=== PATIENT | female | born 1965 | race Caucasian/White ===

== ENCOUNTER 2018-09-13 19:38 | Observation (INO) | payer BC ==
[2018-09-13] MEDS ORDERED: DIPHENHYDRAMINE 50 MG/ML VIAL ONE (20:28)
[2018-09-13] MEDS ORDERED: METOCLOPRAMIDE 10 MG/2mL INJ ONE (20:28)
[2018-09-13] MEDS ORDERED: NA CHLORIDE 0.9% 1,000 ML ONE (20:28)
[2018-09-13] MEDS ORDERED: MORPHINE 2 MG/ML SYR ONE (20:28)
[2018-09-13 20:37] LABS: Absolute Lymphocytes (CBC) 1.4 K/uL (0.7-4.9); Basophils % 1.1 % (0-1.3); Hematocrit 42.1 % (36.0-45.0); Lymphocytes % 29.8 % (15.3-44.8); MPV 8.6 fL (7.6-11.3); RBC Red Blood Cell Count 4.41 M/uL (3.86-4.86)
--- OUTSIDE RECORDS SUMMARY | 2018-09-13 20:40 | XMS REPORT | Continuity of Care Document ---
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 Originally documented as HYDROCODONE. mupirocin Assertion Drug Active Data migrated MH [facility] topical<bobo allergy 4 from [employer] p>2</sup> Centricity on 07/22/14. Originally documented as BACTROBAN. local crusting & erythema & inflammation Immunizations Immunization Date Given Site Status Last Updated Comments Source Results Order Results Value Reference Date Interpretation Comments Source Name Range Soft Soft REASON FOR EXAM: I88.9. Cervical lymphadenitis. 08/01 - OPID Tissue Tissue /2016 - [facility] Head/Ne Head/Nec ck US k US COMPARISON: None. Read by: Juanito Evans MD Dictated Date/time: 08/01/16 16:12 Electronically Signed by: Juanito Evans MD 08/01/16 16:18 FINAL REPORT FINDINGS: Nonvascular ultrasound of the right neck was performed using a linear transducer. Static images are submitted. 2 lymph nodes are noted in the right neck with a thickened cortex corresponding t o palpable abnormalities identified by the patient measuring 1.8 x 0.72 x 1.3 cm and 1.8 x 0.75 x 0.97 cm. An additional lymph node is noted in the inferior, lateral right neck without a fatty hilum adrianna suring 1.6 x 0.62 x 1.1 cm. Lymphadenopathy may be due to an inflammatory, infectious or neoplastic etiology. There is no additional sonographic abnormality on the submitted images. IMPRESSION: Right neck lymphadenopathy. SL: 15 Vital Signs Vital Sign Value Date Comments Source Encounters Location Location Encounter Encounter Reason Attending ADM DC Status Source Details Type Number For Provider Date Date Visit Outpatient [id number] [place] 06/13 [facility] [place] Outpatient [id number] NJUV 07/09 [facility] Outpatient [id number] [facility] 07/18 [facility] Outpt Diag [id number] [facility] 08/01 08/02 [facility] Outpatient [id number] CAR[place] 08/13 [facility] [place] Outpatient [id number] [facility] 11/13 [facility] Procedures Procedure Code Date Perfomer Comments Source Endometrial ablation [id number] 03/24/2013 OPID [place] Cyst of [id number] 03/24/2005 left breast MH OPID breast<sup>1</sup> [place] Cholecystectomy [id number] 03/24/2000 MH OPID [place] Insertion of hearing [id number] MH OP[facility] implant into middle Casey ear Removal of vestibular [id number] left MH OPID schwannoma<sup>2</sup Casey >
--- OUTSIDE RECORDS SUMMARY | 2018-09-13 20:40 | XMS REPORT | Summary of Care ---
:1965 Author Organization [facility] Outpatient [facility] [place] Address [address] [place], [place] [address]- Encounter HQ Encntr_alias(FIN) [id number] Date(s): 08/01/16 - 08/01/16 [facility] [address], [address] [place] [id number] Discharge Disposition: Home or Self Care Attending Physician: Anel Rudolph MSN, RN, DIRECTOR CAMP-C Vital Signs No data available for this section Problem List Condition Effective Dates Status Health Status Informant Adenomyosis(Confirmed) Resolved Asthma(Confirmed) Resolved Personal history of Vestibular Active Schwannoma(Confirmed) Allergies, Adverse Reactions, Alerts Substance Reaction Severity Status HYDROcodone1 Active mupirocin topical2 Active 1Data migrated from [employer] on 07/22/14. Originally documented as HYDROCODONE.2Data migrated from [employer] on 07/22/14. Originally documented as BACTROBAN. local crusting &erythema & inflammation Medications No data available for this section Results No data available for this section Immunizations No data available for this section Procedures Procedure Date Related Diagnosis Body Site Endometrial ablation 03/24/13 Cyst of breast1 03/24/05 Cholecystectomy 03/24/00 Insertion of hearing implant into middle ear Removal of vestibular schwannoma2 1left [id number] Social History Social History Type Response Smoking Status Never smoker; Exposure to Tobacco Smoke None; Cigarette Smoking Last 365 Days No; Reg Smoking Cessation Counseling No Assessment and Plan No data available for this section
--- OUTSIDE RECORDS SUMMARY | 2018-09-13 20:40 | XMS REPORT ---
:1965 Author [facility] Address [address] [place] [address] Dr. Good[address] [place] [address] Care Team Providers Name Role Phone DR MIKY WHITE Unavailable Unavailable Problems This patient has no known problems. Allergies, Adverse Reactions, Alerts This patient has no known allergies or adverse reactions. Medications This patient has no known medications. Encounters Start End Encounter Admission Attending Care Care Encounter Date/Time Date/Time Type Type Clinicians Facility Department ID 2015-08-23 2016-09-27 Outpatient PASCUAL [facility] BALANCE PT [id number] 07:23:00 23:59:00 MIKY
--- OUTSIDE RECORDS SUMMARY | 2018-09-13 20:40 | XMS REPORT | Clinical Summary ---
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 prostate Relation Name Status Comments Father Mother Alive Social History Tobacco Use Types Packs/Day Years Used Date Never Smoker Smokeless Tobacco: Never Used Alcohol Use Drinks/Week oz/Week Comments Yes 1 Standard drinks or equivalent 0.6 3-4/ week Sex Assigned at Date Recorded Not on file Job Start Date Occupation Industry Not on file Not on file Not on file Travel History Travel Start Travel End No recent travel history available. Last Filed Vital Signs Not on file Plan of Treatment Health Maintenance Due Date Last Done Comments BREAST CANCER SCREENING 2016 COLONOSCOPY SCREENING 2016 SHINGLES VACCINES (#1) 2016 INFLUENZA VACCINE 10/22/2018 Implants Implanted Type Area Bus Girl Device Shelf Model / Identifier Expiration Serial / Date Lot Implant Coclr W/ 12mm Abtmnt [id number] 4mm Baha - [id number] Otolaryngology Left: COCHLEAR RIGOBERTO 02/20/2018 [id number] / Implanted: Qty: 1 on 09/04/2015 by Elfego Hargrove MD Implants or Sets Ear / [id number] Results Not on fileafter 09/12/2017 Guarantor Name Account Type Relation to Date of Phone Billing Address Patient Rubina Bhatia Personal/Family Self 1965 [phone] [facility] (Home) [facility] [phone] [place] [address] (Work) Advance Directives Patient has advance care planning documents on file. For more information, please contact:Danilo Soto[address] [place] [address]
[2018-09-13 20:49] LABS: Protime INR 1.02
[2018-09-13 20:56] LABS: ALT/SGPT 59 U/L (12-78); AST/SGOT 30 U/L (15-37); Albumin 4.1 g/dL (3.4-5.0); Alkaline Phosphatase 95 U/L (45-117); BUN Blood Urea Nitrogen 12 mg/dL (7-18); Bicarbonate 26 mmol/L (21-32); Bilirubin Direct < 0.1 mg/dL (0-0.2); Bilirubin Total 0.5 mg/dL (0.2-1.0); Glucose Level 104 mg/dL (74-106); Magnesium 2.2 mg/dL (1.8-2.4); NT PRO-BNP 50 pg/mL (<125); Potassium 3.7 mmol/L (3.5-5.1); Protein, Total 7.1 g/dL (6.4-8.2); Sodium Level 144 mmol/L (136-145); Troponin (Emerg Dept Use Only) < 0.02 ng/mL (0.0-0.045)
--- NOTE | 2018-09-13 21:05 | RAD REPORT ---
EXAM DESCRIPTION: RAD - Chest Single View - 09/13/2018 8:39 pm CLINICAL HISTORY: Chest pain COMPARISON: January 2009 TECHNIQUE: AP portable chest image was obtained 2036 hours . FINDINGS: Low lung volumes noted. No failure, infiltrate or mass. Trachea is midline. Heart and vasc ulature are normal. No measurable pleural effusion and no pneumothorax. No acute bony abnormality see n. No acute aortic findings suspected. IMPRESSION: No acute cardiopulmonary process. No significant change from comparison.
[2018-09-13] MEDS ORDERED: ALPRAZOLAM 0.25 MG TABLET PO PRN (21:56)
[2018-09-13] MEDS ORDERED: ACETAMINOPHEN 500 MG TAB PO PRN (21:56)
[2018-09-13 23:14] VITALS: BMI 29.2
--- NOTE | 2018-09-14 00:44 | ER ---
Nurse's Notes [facility] Name: Rubina Bhatia Age: 52 yrs Sex: Female : 1965 Arrival Date: 09/13/2018 Time: 19:39 Bed 14 Private MD: Diagnosis: Headache;Dizziness and giddiness;Chest pain, unspecified Presentation: 09/13 19:44 Presenting complaint: Patient states: Headache with n/v that started today. Care prior aj to arrival: None. 19:44 Acuity: LI 3 aj 20:06 Transition of care: patient was not received from another setting of care. Onset of ak1 symptoms is unknown. Risk Assessment: Do you want to hurt yourself or someone else? Patient reports no desire to harm self or others. Initial Sepsis Screen: Does the patient meet any 2 criteria? No. Patient's initial sepsis screen is negative. Does the patient have a suspected source of infection? No. Patient's initial sepsis screen is negative. 20:06 Method Of Arrival: Ambulatory ak1 Triage Assessment: 19:45 Headache History: Denies prior headaches. General: Appears in no apparent distress. aj uncomfortable, Behavior is calm, cooperative, appropriate for age. Pain: Complains of pain in face and scalp. Neuro: Level of Consciousness is awake, alert, obeys commands, Oriented to person, place, time, situation, Appropriate for age Reports headache. Respiratory: Airway is patent Respiratory effort is even, unlabored, Respiratory pattern is regular, symmetrical. GI: Reports nausea, vomiting. Derm: Skin is intact, is healthy with good turgor, Skin is pink, warm \T\ dry. normal. 20:08 Pain: Pain Pain began 2-3 days ago. Also complains of nausea. 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 - Social history:: Smoking status: unknown. - Ebola Screening: : No symptoms or risks identified at this time. Screenin:55 Abuse screen: Denies threats or abuse. Denies injuries from another. Nutritional ak1 screening: No deficits noted. Tuberculosis screening: No symptoms or risk factors identified. Fall Risk None identified. Assessment: 20:04 General: Appears uncomfortable, Behavior is cooperative, quiet. Pain: Complains of pain ak1 in headache. 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 Gait is steady, Speech is normal, Facial symmetry appears normal. Cardiovascular: Reports chest pain, nausea, vomiting, Heart tones S1 S2. Respiratory: No deficits noted. GI: Abdomen is round non-distended, Bowel sounds present X 4 quads. Abd is soft and non tender X 4 quads. Reports nausea, vomiting. : No signs and/or symptoms were reported regarding the genitourinary system. EENT: No signs and/or symptoms were reported regarding the EENT system. Derm: No signs and/or symptoms reported regarding the dermatologic system. Musculoskeletal: No signs and/or symptoms reported regarding the musculoskeletal system. 20:58 Reassessment: Patient appears in no apparent distress at this time. Patient and/or ak1 family updated on plan of care and expected duration. Pain level reassessed. Patient is alert, oriented x 3, equal unlabored respirations, skin warm/dry/pink. Patient denies pain at this time. Patient states feeling better. Patient states symptoms have improved. 22:09 Reassessment: Patient appears in no apparent distress at this time. pt resting on left ak1 side with eyes closed, resp even and unlabored. pt informed of admission status, process and wait for room. pt denies pain at this time, stating her headache has resolved. Patient states symptoms have improved. Vital Signs: 19:45 BP 117 / 58; Pulse 70; Resp 16; Temp 98.6; Pulse Ox 98% on R/A; Weight 72.57 kg; Height aj 5 ft. 3 in. (160.02 cm); 20:58 BP 129 / 66; Pulse 70; Resp 14; Pulse Ox 100% on R/A; Pain 0/10; ak1 22:02 BP 96 / 48; Pulse 55; Resp 14; Temp 98.5; Pulse Ox 100% on R/A; Pain 0/10; ak1 19:45 Body Mass Index 28.34 (72.57 kg, 160.02 cm) ED Course: 19:39 Patient arrived in ED. am2 19:45 Triage completed. aj 19:45 Arm band placed on right wrist. Patient placed in an exam room. aj 19:53 Hemant Odonnell PA is PHCP. [facility] 19:53 Sarthak Stiles MD is Attending Physician. jmm 19:54 Anju Kay, RN is Primary Nurse. ak1 20:05 Inserted saline lock: 20 gauge in right antecubital area, using aseptic technique. ak1 Blood collected. 20:07 Patient has correct armband on for positive identification. Placed in gown. Bed in low ak1 position. Call light in reach. Side rails up X 1. cafeteria monitor on. Pulse ox on. NIBP on. 20:38 XRAY Chest (1 view) In Process Unspecified. EDMS 20:44 CT Head Brain wo Cont In Process Unspecified. EDMS 20:44 CT completed. Patient tolerated procedure well. Patient moved back from CT. bq 21:32 No provider procedures requiring assistance completed. ak1 21:35 Leland Mistry MD is Hospitalizing Provider. jmm 22:10 Patient admitted, IV remains in place. ak1 Administered Medications: 20:36 Drug: diphenhydrAMINE 12.5 mg Route: IVP; Site: right antecubital; ak1 20:56 Follow up: Response: No adverse reaction; Pain is decreased ak1 20:36 Drug: morphine 2 mg Route: IVP; Site: right antecubital; ak1 20:57 Follow up: Response: No adverse reaction; Pain is decreased ak1 20:37 Drug: Reglan 10 mg Route: IVP; Site: right antecubital; ak1 20:57 Follow up: Response: No adverse reaction; Pain is decreased ak1 20:56 Drug: NS 0.9% 1000 ml Route: IV; Rate: 1 bolus; Site: right antecubital; ak1 21:50 Follow up: IV Status: Completed infusion; IV Intake: 1000ml ak1 Intake: 21:50 IV: 1000ml; Total: 1000ml. ak1 Outcome: 21:35 Decision to Hospitalize by Provider. jmm 22:10 Condition: stable ak1 22:10 Instructed on the need for admit. 23:10 Admitted to Med/surg accompanied by tech, via wheelchair, room 221, with chart, Report ak1 called to Rae KNIGHT for 221 23:10 Patient left the ED. ak1 Signatures: Dispatcher [employer] EDSamantha Padilla RN RN aj Mickail, Joel, PA PA jmm Quilty, Betty bq Krenek, Amber, RN RN ak1 Samantha Prather am2
--- NOTE | 2018-09-14 00:44 | EDPHYS ---
Physician Documentation [facility] Name: Rubina Bhatia Age: 52 yrs Sex: Female : 1965 Arrival Date: 09/13/2018 Time: 19:39 Bed 14 Private MD: ED Physician Sarthak Stiles HPI: 09/13 20:00 This 52 yrs old Female presents to ER via Ambulatory with complaints of jmm Headache, Nausea/Vomiting, Chest Pain. 20:00 Onset: The symptoms/episode began/occurred gradually, at 17:00. Associated signs and jmm symptoms: Pertinent positives: vomiting. This is a 52 year old female that presents to the ED with complaints of vomiting since this past . Patient states taking a nap this afternoon and awakening with a headache along with chest pain. Patient states the pain intensified upon subsequent episodes of vomiting. Patient denies abdominal pain. Patient also complains of dizziness which the patient states is chronic. . 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 - Social history:: Smoking status: unknown. - Ebola Screening: : No symptoms or risks identified at this time. ROS: 20:06 Constitutional: Negative for fever, chills, and weight loss, Neck: Negative for injury, jmm pain, and swelling. 20:06 Cardiovascular: Positive for chest pain. 20:06 Abdomen/GI: Positive for vomiting. 20:06 Neuro: Positive for dizziness, headache. 20:06 All other systems are negative. Exam: 20:06 Constitutional: This is a well developed, well nourished patient who is awake, alert, jmm and in no acute distress. Head/Face: atraumatic. Eyes: EOMI, no conjunctival erythema appreciated ENT: Moist Mucus Membranes Neck: Trachea midline, Supple Chest/axilla: Normal chest wall appearance and motion. 20:06 Cardiovascular: Rate: normal, Rhythm: regular. 20:06 Respiratory: the patient does not display signs of respiratory distress, Respirations: normal, Breath sounds: are clear throughout. 20:06 Abdomen/GI: Inspection: abdomen appears normal, Bowel sounds: normal, Palpation: abdomen is soft and non-tender, in all quadrants. 20:06 Musculoskeletal/extremity: ROM: intact in all extremities. 20:06 Skin: Appearance: Color: normal in color. 20:06 Neuro: Orientation: is normal, Mentation: is normal, Memory: is normal. 20:06 Psych: Behavior/mood is pleasant, cooperative. 20:45 ECG was reviewed by the Attending Physician. [facility] Vital Signs: 19:45 BP 117 / 58; Pulse 70; Resp 16; Temp 98.6; Pulse Ox 98% on R/A; Weight 72.57 kg; Height aj 5 ft. 3 in. (160.02 cm); 20:58 BP 129 / 66; Pulse 70; Resp 14; Pulse Ox 100% on R/A; Pain 0/10; ak1 22:02 BP 96 / 48; Pulse 55; Resp 14; Temp 98.5; Pulse Ox 100% on R/A; Pain 0/10; ak1 19:45 Body Mass Index 28.34 (72.57 kg, 160.02 cm) MDM: 19:59 Patient medically screened. [facility] 21:33 Data reviewed: vital signs, nurses notes. Counseling: I had a detailed discussion with [facility] the patient and/or guardian regarding: the historical points, exam findings, and any diagnostic results supporting the discharge/admit diagnosis, lab results, radiology results, the need for further work-up and treatment in the hospital. 21:33 ED course: Due to change in character of dizziness along with chest pain, patient will [facility] be admitted for observation along with mri imaging. This was discussed with Dr. Stiles whom recommended this as a plan of care. Patient pain is currently resolved in the ED on admission. I discussed the patient with Dr. Mistry whom accepted admission. . 09/13 20:00 Order name: Basic Metabolic Panel [facility] 09/13 20:00 Order name: CBC with Diff [facility] 09/13 20:00 Order name: LFT's [facility] 09/13 20:00 Order name: Magnesium [facility] 09/13 20:00 Order name: NT PRO-BNP; Complete Time: 20:58 [facility] 09/13 20:00 Order name: PT-INR; Complete Time: 20:58 [facility] 09/13 20:00 Order name: Troponin (emerg Dept Use Only); Complete Time: 20:58 [facility] 09/13 20:01 Order name: Basic Metabolic Panel; Complete Time: 20:58 [facility] 09/13 20:01 Order name: CBC with Automated Diff; Complete Time: 20:58 [facility] 09/13 20:01 Order name: Liver (Hepatic) Function; Complete Time: 20:58 [facility] 09/13 20:01 Order name: Magnesium; Complete Time: 20:58 [facility] 09/13 22:05 Order name: Basic Metabolic Panel [facility] 09/13 22:06 Order name: Troponin I [facility] 09/13 22:08 Order name: CKMB Creatine Kinase MB [facility] 09/13 20:00 Order name: XRAY Chest (1 view); Complete Time: 21:16 [facility] 09/13 20:00 Order name: EKG; Complete Time: 20:02 [facility] 09/13 20:00 Order name: CT Head Brain wo Cont [facility] 09/13 21:25 Order name: CT Head Angio [facility] 09/13 21:25 Order name: CT Neck Angio [facility] 09/13 22:06 Order name: Echo with Doppler [facility] 09/13 22:06 Order name: EKG Electrocardiogram [facility] 09/13 22:08 Order name: Brain With Cont [facility] 09/13 22:08 Order name: Creatine Phosphokinase [facility] 09/13 22:08 Order name: Troponin I [facility] 09/13 22:08 Order name: Troponin I [facility] 09/13 22:08 Order name: Troponin I [facility] 09/13 20:00 Order name: Cardiac monitoring; Complete Time: 20:09 [facility] 09/13 20:00 Order name: EKG - Nurse/Tech; Complete Time: 20:59 [facility] 09/13 20:00 Order name: IV Saline Lock; Complete Time: 20:38 [facility] 09/13 20:00 Order name: Labs collected and sent; Complete Time: 20:38 [facility] 09/13 20:00 Order name: O2 Per Protocol; Complete Time: 20:09 [facility] 09/13 20:00 Order name: O2 Sat Monitoring; Complete Time: 20:09 [facility] 09/13 22:06 Order name: EKG Electrocardiogram [facility] EC:45 Rate is 63 beats/min. Rhythm is regular. QRS Clio is Normal. MD interval is normal. QRS jmm interval is normal. QT interval is normal. No Q waves. T waves are Flattened in leads III, aVL, aVR, V1. No ST changes noted. Administered Medications: 20:36 Drug: diphenhydrAMINE 12.5 mg Route: IVP; Site: right antecubital; ak1 20:56 Follow up: Response: No adverse reaction; Pain is decreased ak1 20:36 Drug: morphine 2 mg Route: IVP; Site: right antecubital; ak1 20:57 Follow up: Response: No adverse reaction; Pain is decreased ak1 20:37 Drug: Reglan 10 mg Route: IVP; Site: right antecubital; ak1 20:57 Follow up: Response: No adverse reaction; Pain is decreased ak1 20:56 Drug: NS 0.9% 1000 ml Route: IV; Rate: 1 bolus; Site: right antecubital; ak1 21:50 Follow up: IV Status: Completed infusion; IV Intake: 1000ml ak1 Disposition: 09/14 09:31 Co-signature as Attending Physician, Sarthak Stiles MD I agree with the assessment and wa plan of care. Disposition: 09/13/18 21:35 Hospitalization ordered by Leland Mistry for Observation. Preliminary diagnosis are Headache, Dizziness and giddiness, Chest pain, unspecified. - Bed requested for Telemetry/MedSurg (observation). - Status is Observation. ak1 - Condition is Stable. - Problem is new. - Symptoms have improved. UTI on Admission? No Signatures: Dispatcher [employer] EDMS Leelee Hale RN RN mw Myers, Amanda, RN RN aj Mickail, Joel, PA PA jmm Krenek, Amber, RN RN ak1 Appiah, William, MD MD vt Corrections: (The following items were deleted from the chart) 09/13 22:26 21:35 Hospitalization Ordered by Leland Mistry MD for Observation. Preliminary diagnosis is Headache; Dizziness and giddiness; Chest pain, unspecified. Bed requested for Telemetry/MedSurg (observation). Status is Observation. Condition is Stable. Problem is new. Symptoms have improved. UTI on Admission? No. [place] 23:10 22:26 09/13/2018 21:35 Hospitalization Ordered by Leland Mistry MD for Observation. ak1 Preliminary diagnosis is Headache; Dizziness and giddiness; Chest pain, unspecified. Bed requested for Telemetry/MedSurg (observation). Status is Observation. Condition is Stable. Problem is new. Symptoms have improved. UTI on Admission? No. mw
[2018-09-14 06:00] LABS: Absolute Lymphocytes (CBC) 1.8 K/uL (0.7-4.9); Basophils % 1.1 % (0-1.3); Hematocrit 39.5 % (36.0-45.0); Lymphocytes % 43.6 % (15.3-44.8); RBC Red Blood Cell Count 4.18 M/uL (3.86-4.86)
[2018-09-14 06:16] LABS: BUN Blood Urea Nitrogen 13 mg/dL (7-18); Bicarbonate 27 mmol/L (21-32); Glucose Level 94 mg/dL (74-106); Potassium 3.8 mmol/L (3.5-5.1); Sodium Level 144 mmol/L (136-145)
[2018-09-14 06:17] LABS: HDL Cholesterol 50 mg/dL (40-60); LDL Cholesterol, Calculated 84 (<130); Troponin I < 0.02 ng/mL (0.0-0.045)
--- NOTE | 2018-09-14 06:54 | P.HP ---
Certification for Inpatient Patient admitted to: Observation With expected LOS: <2 Midnights Patient will require the following post-hospital care: None Practitioner: I am a practitioner with admitting privileges, knowledge of patient current condition, hospital course, and medical plan of care. Services: Services provided to patient in accordance with Admission requirements found in Title 42 Section 412.3 of the Code of Federal Regulations Patient History Date of Service: 09/13/18 Reason for admission: CHEST PAIN/INTRACTABLE NAUSEA AND VOMITING/HEADACHE/ VERTIGO History of Present Illness: PATIENT IS A 52-YEAR-OLD FEMALE CAME INTO THE HOSPITAL WITH COMPLAINTS OF PERSISTENT NAUSEA AND VOMITING. THIS BEEN GOING ON FOR THE LAST 24-48 HR. SHE WAS TAKEN A NAP AND WHEN SHE WOKE UP SHE HAD CHEST PAIN AND HEADACHE. SHE CAME INTO THE EMERGENCY ROOM FOR FURTHER EVALUATION. IN THE EMERGENCY ROOM HER WORKUP HAS BEEN UNREMARKABLE. HER CT OF THE HEAD WAS NEGATIVE. EKG AND TROPONINS HAVE BEEN NEGATIVE WELL. PATIENT WAS HAVING SOME WORSENING VERTIGO SYMPTOMS WELL THE HEADACHE WITH THE NAUSEA AND VOMITING. CONCERN FOR POSTERIOR CEREBRAL ARTERY CIRCULATION ISSUE. PATIENT GET AN MRI IN THE MORNING FOR FURTHER EVALUATION WELL A CARDIAC WORKUP. Allergies adhesive tape Allergy (Verified 09/13/18 23:51) blisters Home Medications: NK [No Home Meds] 09/13/18 - Past Medical/Surgical History Has patient received pneumonia vaccine in the past: No Diabetic: No -: brain tumor -: tumor removal in brain 2013 -: bone anchor for hearing aid - Family History Father History Unknown: Yes Medical History: Hypertension, Stroke, Cancer Mother History Unknown: Yes Medical History: Other (see notes) Notes: thyroid problem - Social History Smoking Status: Never smoker Alcohol use: Yes Place of Residence: Home Review of Systems 10-point ROS is otherwise unremarkable Physical Examination - Vital Signs Temperature: 97.5 F Blood Pressure: 108/56 Pulse: 54 Respirations: 16 Pulse Ox (%): 96 - Physical Exam General: Alert, In no apparent distress, Oriented x3 HEENT: Atraumatic, PERRLA, Mucous membr. moist/pink, EOMI, Sclerae nonicteric Neck: Supple, 2+ carotid pulse no bruit, No LAD, Without JVD or thyroid abnormality Respiratory: Clear to auscultation bilaterally, Normal air movement Cardiovascular: Regular rate/rhythm, Normal S1 S2, No murmurs Gastrointestinal: Normal bowel sounds, Soft and benign, Non-distended, No tenderness Musculoskeletal: No clubbing, No swelling, No tenderness Integumentary: No rashes Neurological: Normal speech, Normal strength at 5/5 x4 extr, Normal tone, Sensation intact, Cranial nerves 3-12 intact, Normal affect Lymphatics: No axilla or inguinal lymphadenopathy - Studies Laboratory Data (last 24 hrs) 09/13/18 20:23: PT 12.0, INR 1.02 09/13/18 20:23: WBC 4.6, Hgb 14.4, Hct 42.1, Plt Count 219 09/13/18 20:23: Sodium 144, Potassium 3.7, BUN 12, Creatinine 0.80, Glucose 104 , Magnesium 2.2, Total Bilirubin 0.5, AST 30, ALT 59, Alkaline Phosphatase 95 Assessment & Plan - Problems (Diagnosis) (1) Vertigo Current Visit: Yes Status: Acute (2) Headache Current Visit: Yes Status: Acute (3) Chest pain, rule out acute myocardial infarction Current Visit: Yes Status: Acute (4) Intractable nausea and vomiting Current Visit: Yes Status: Acute - Plan PLAN: 1. Serial troponins and EKG 2. Cardiology consultation if workup is positive for any concerning findings 3. Echocardiogram 4. Anti-platelet therapy, anti coagulation, beta-romy, statin, and O2 as needed 5. IV morphine for pain 6. Anti emetics 7. MRI of the for further evaluation of her vertigo and nausea symptoms along with the headache 8. GI and DVT prophylaxis Discharge Plan: Home Plan to discharge in: 24 Hours - Advance Directives Does patient have a Living Will: Yes Does patient have a Durable POA for Healthcare: Yes - Code Status/Comfort Care Code Status Assessed: Yes Code Status: Full Code Critical Care: No Time Spent Managing PTS Care (In Minutes): 40
[2018-09-14 07:40] LABS: Anisocytosis 1+; Blood Morphology Comment NOTED (NOT SEEN); Platelet Estimate ADEQ
--- NOTE | 2018-09-14 07:52 | EKG ---
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
[2018-09-14] MEDS: MECLIZINE HCL 12.5 MG TAB PO SCH ×2 (08:26→14:00)
[2018-09-14] MEDS ORDERED: IBUPROFEN 400 MG TAB PO PRN (08:34)
[2018-09-14] MEDS ORDERED: ASPIRIN EC 81 MG TAB PO SCH (09:00)
[2018-09-14] MEDS ORDERED: METOPROLOL TAR 25 MG TAB PO SCH (09:00)
[2018-09-14] MEDS ORDERED: METOPROLOL TAR 50 MG TAB PO SCH ×2 (09:00)
[2018-09-14] MEDS ORDERED: ENOXAPARIN 40 MG/0.4 ML SQ SCH (09:00)
--- NOTE | 2018-09-14 09:41 | P.DS ---
Admission Date: 09/13/18 Discharge Date: 09/14/18 Primary Care Provider: PCP-Denominational; ENT-Dr. Carrion(Denominational) Disposition: ROUTINE DISCHARGE Discharge Condition: GOOD Reason for Admission: CHEST PAIN/INTRACTABLE NAUSEA AND VOMITING/HEADACHE/ VERTIGO Consultations: None Procedures: CT head with and without contrast: Unremarkable. 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 She also reports chest pain and headaches. Patient was evaluated emergency room. Patient with history of acoustic neuroma with implant. Patient with history of chronic vertigo and headaches. CT head unremarkable. EKG and cardiac enzymes unremarkable. Patient admitted for further evaluation. Hospital Course: Patient presented with nausea, vomiting, vertigo and chest pain. CT head unremarkable. CT angiogram performed. MRI brain performed. At discharge she is without any nausea, vomiting, headaches, and chest pain. Cardiac enzymes unremarkable. Echocardiogram performed. Wound care consult was done to evaluate chronic wound to the left ear. This is related to her implant. No infection is noted at this time. This has been monitored closely by ENT. Her last visit with ENT was 8 months ago. Continue with wound care recommendations. Recommend to follow up with ENT to follow up this hospitalization and continue her care. Patient will continue with Motrin, Tylenol or tramadol as needed for pain. Patient has medication at home. Patient has seen Neurology in the past concerning chronic headaches. Will recommend to follow up with neurology or locally further address her chronic headaches. If chest pain persists recommend for outpatient cardiac evaluation. Vital Signs/Physical Exam: Temp Pulse Resp BP Pulse Ox 97.5 F 66 16 116/58 L 96 09/14/18 06:55 09/14/18 08:26 09/14/18 06:55 09/14/18 08:26 09/14/18 06:55 General: Alert, In no apparent distress, Oriented x3, Cooperative HEENT: Atraumatic Neck: Supple Respiratory: Clear to auscultation bilaterally, Normal air movement Cardiovascular: Normal pulses, Regular rate/rhythm Gastrointestinal: Normal bowel sounds, Soft and benign, Non-distended, No tenderness, No masses, No rebound, No guarding Musculoskeletal: No erythema, No tenderness, No warmth Integumentary: Other (Implant in place to the left ear. Mild irritation to implant) Neurological: Normal speech, Normal strength at 5/5 x4 extr, Normal tone, Normal affect Laboratory Data at Discharge: WBC 4.1 K/uL (4.3-10.9) L 09/14/18 05:33 Hgb 13.9 g/dL (12.0-15.0) 09/14/18 05:33 Hct 39.5 % (36.0-45.0) 09/14/18 05:33 Plt Count 207 K/uL (152-406) 09/14/18 05:33 PT 12.0 SECONDS (9.5-12.5) 09/13/18 20:23 INR 1.02 09/13/18 20:23 Sodium 144 mmol/L (136-145) 09/14/18 05:33 Potassium 3.8 mmol/L (3.5-5.1) 09/14/18 05:33 BUN 13 mg/dL (7-18) 09/14/18 05:33 Creatinine 0.72 mg/dL (0.55-1.3) 09/14/18 05:33 Glucose 94 mg/dL (74-106) 09/14/18 05:33 Magnesium 2.2 mg/dL (1.8-2.4) 09/13/18 20:23 Total Bilirubin 0.5 mg/dL (0.2-1.0) 09/13/18 20:23 AST 30 U/L (15-37) 09/13/18 20:23 ALT 59 U/L (12-78) 09/13/18 20:23 Alkaline Phosphatase 95 U/L (45-117) 09/13/18 20:23 Troponin I < 0.02 ng/mL (0.0-0.045) 09/14/18 05:33 Triglycerides Cancelled 09/14/18 06:00 Cholesterol Cancelled 09/14/18 06:00 HDL Cholesterol Cancelled 09/14/18 06:00 Cholesterol/HDL Ratio Cancelled 09/14/18 06:00 Home Medications: NK [No Home Meds] 09/13/18 Patient Discharge Instructions: 1. Recommend to follow up with her PCP in 1 week to follow up this hospitalization. 2. Patient presented with nausea, vomiting, vertigo and chest pain. CT head unremarkable. CT angiogram performed. MRI brain performed. At discharge she is without any nausea, vomiting, headaches, and chest pain. Cardiac enzymes unremarkable. Echocardiogram performed. Wound care consult was done to evaluate chronic wound to the left ear. This is related to her implant. No infection is noted at this time. This has been monitored closely by ENT. Her last visit with ENT was 8 months ago. Continue with wound care recommendations. Recommend to follow up with ENT to follow up this hospitalization and continue her care. Patient will continue with Motrin, Tylenol or tramadol as needed for pain. Patient has medication at home. Patient has seen Neurology in the past concerning chronic headaches. Will recommend to follow up with neurology or locally further address her chronic headaches. If chest pain persists recommend for outpatient cardiac evaluation. Diet: AHA Activity: Ad ronald Time spent managing pt's care (in minutes): 55
--- NOTE | 2018-09-14 11:08 | RAD REPORT ---
EXAM DESCRIPTION: Head angio CLINICAL HISTORY: Headache, dizziness COMPARISON: None. TECHNIQUE: CT HEAD ANGIOGRAPHY WITH IV CONTRAST, CT NECK ANGIOGRAPHY WITH IV CONTRAST on 09/13/2018 9 :25 PM CDT This exam was performed according to our departmental dose-optimization program, which includes autom ated exposure control, adjustment of the mA and/or kV according to patient size and/or use of iterati ve reconstruction technique. MIP reconstructions were generated. Stenoses are calculated by NASCET criteria. FINDINGS: Bilateral common carotid and internal carotid arteries are unremarkable. The extracranial vertebral arteries are patent. The vertebral basilar system is normal. Anterior communicating artery is present. Bilateral anterior and middle cerebral arteries are patent. IMPRESSION: Unremarkable CT angiogram. CAROTID STENOSIS REFERENCE USING NASCET CRITERIA: % ICA stenosis = (1 - narrowest ICA diameter/diameter of distal cervical ICA) x 100. Mild - Moderate - 50-69% stenosis. Severe - 70-94% stenosis. Near occlusion - 95-99% stenosis. Occluded - 100% stenosis. Electronically signed by: Kip Chinchilla MD 09/14/2018 3:04 AM CDT Due to temporary technical issues with the PACS/Fluency reporting system, reports are being signed by the in house radiologist as a courtesy to ensure prompt reporting. The interpreting radiologist is f ully responsible for the content of the report.
--- NOTE | 2018-09-14 11:09 | RAD REPORT ---
EXAM DESCRIPTION: Neck Angio CLINICAL HISTORY: Headache, dizziness COMPARISON: None. TECHNIQUE: CT HEAD ANGIOGRAPHY WITH IV CONTRAST, CT NECK ANGIOGRAPHY WITH IV CONTRAST on 09/13/2018 9 :25 PM CDT This exam was performed according to our departmental dose-optimization program, which includes autom ated exposure control, adjustment of the mA and/or kV according to patient size and/or use of iterati ve reconstruction technique. MIP reconstructions were generated. Stenoses are calculated by NASCET criteria. FINDINGS: Bilateral common carotid and internal carotid arteries are unremarkable. The extracranial vertebral arteries are patent. The vertebral basilar system is normal. Anterior communicating artery is present. Bilateral anterior and middle cerebral arteries are patent. IMPRESSION: Unremarkable CT angiogram. CAROTID STENOSIS REFERENCE USING NASCET CRITERIA: % ICA stenosis = (1 - narrowest ICA diameter/diameter of distal cervical ICA) x 100. Mild - Moderate - 50-69% stenosis. Severe - 70-94% stenosis. Near occlusion - 95-99% stenosis. Occluded - 100% stenosis. Electronically signed by: Kip Chinchilla MD 09/14/2018 3:04 AM CDT Due to temporary technical issues with the PACS/Fluency reporting system, reports are being signed by the in house radiologist as a courtesy to ensure prompt reporting. The interpreting radiologist is f ully responsible for the content of the report.
--- NOTE | 2018-09-14 11:19 | RAD REPORT ---
EXAM DESCRIPTION: CT - Head Brain Wo Cont - 09/13/2018 9:10 pm CLINICAL HISTORY: Headache, vomiting . COMPARISON: 05/08/2011 TECHNIQUE: Contiguous axial sections are obtained as per protocol. Sagittal and coronal reformations are submitted Automatic exposure control (AEC), mA and/or kV adjustment by patient size, and/or iterative reconstru ctive technique was used, per departmental dose optimization program, during the performance of the C T examination. FINDINGS: Ventricles, sulci and cisterns appear normal. Normal harmon-white matter differentiation i s noted. No evidence of intra or extra-axial hemorrhage, hematoma, mass, mass effect or midline shift is noted. The posterior fossa structures appear normal. Presence of a metallic density is noted in the left par ieto-occipital calvarium and extending into the soft tissues. It is unknown whether this is related t o trauma or prior surgery. It measures 1.6 x 0.6 x 7 mm in size. Clinical correlation is recommended. The bony calvarium appears intact. The soft tissues of the scalp appear unremarkable. Normal appearance of the orbits are noted. The paranasal sinuses appear normal. Evidence of prior lef t mastoidectomy and postsurgical changes in the region of the left internal auditory canal, since kim or CT examination.. IMPRESSION: Unremarkable non contrast enhanced CT examination of brain. Postsurgical changes as desc ribed. Radiopaque metallic foreign body in the left posterior bony calvarium and soft tissues. Electronically signed by: Precious Madrid MD 09/13/2018 9:01 PM CDT Due to temporary technical issues with the PACS/Fluency reporting system, reports are being signed by the in house radiologist as a courtesy to ensure prompt reporting. The interpreting radiologist is f frankly responsible for the content of the report.
[2018-09-14 12:16] VITALS: O2SAT 98
[2018-09-14 12:34] VITALS: BP 115/59; TEMP 97.8
--- NOTE | 2018-09-14 12:38 | ECHO ---
HEIGHT: 5 ft 4 in WEIGHT: 170 lb 8 oz DATE OF STUDY: 09/14/[address]: 2-DIMENSIONAL: YES M.MODE: YES DOPPLER: YES COLOR FLOW: YES TDS: NO PORTABLE: NO DEFINITY: NO BUBBLE STUDY: NO DIAGNOSIS: CHEST PAIN/ RULE OUT ACUTE CORONARY SYNDROME CARDIAC HISTORY: CATHERIZATION: NO SURGERY: NO PROSTHETIC VALVE: NO PACEMAKER: NO MEASUREMENTS (cm) DIASTOLIC (NORMALS) SYSTOLIC (NORMALS) IVSd 0.9 (0.6-1.2) LA Diam 2.9 (1.9-4.0) LVEF 67% LVIDd 4.3 (3.5-5.7) LVIDs 2.7 (2.0-3.5) %FS 37% LVPWd 0.9 (0.6-1.2) Ao Diam 2.8 (2.0-3.7) 2 DIMENSIONAL ASSESSMENT: RIGHT ATRIUM: NORMAL LEFT ATRIUM: NORMAL RIGHT VENTRICLE: NORMAL LEFT VENTRICLE: NORMAL TRICUSPID VALVE: NORMAL MITRAL VALVE: NORMAL PULMONIC VALVE: NORMAL AORTIC VALVE: NORMAL PERICARDIAL EFFUSION: NONE AORTIC ROOT: NORMAL LEFT VENTRICULAR WALL MOTION: NORMAL. DOPPLER/COLOR FLOW: MILD MITRAL AND TRICUSPID REGURGITATION. NORMAL RIGHT VENTRICULAR SYSTOLIC PRESSURE. COMMENTS: NORMAL 2D ECHO. MILD MITRAL AND TRICUSPID REGURGITATION. TECHNOLOGIST: MOOKIE FRAZIER
--- NOTE | 2018-09-15 14:53 | EKG ---
Test Date: 2018-09-14 Test Time: 07:45:04 Geospatial Image Analyst: THERON MEASUREMENT RESULTS: Intervals: Rate: 60 NM: 136 QRSD: 80 QT: 436 QTc: 436 [place]: P: 32 NM: 136 QRS: -32 T: 19 INTERPRETIVE STATEMENTS: Normal sinus rhythm Left axis deviation Nonspecific T wave abnormality Abnormal ECG Compared to ECG 09/13/2018 20:45:13 Left-axis deviation now present T-wave abnormality still present Electronically Signed On 09-15-18 14:47:51 CDT by Remington Lowe
== END 2018-09-14 16:58 | disposition home or self-care (01) ==
LOC: ER 19:38 → ERHOLD 21:57 → 2ND 22:39
PROVIDERS: ADMIT Hospitalist; ATTEND Hospitalist
DX: R07.9 Chest pain, unspecified (principal); R42 Dizziness and giddiness; R51 Headache; R11.2 Nausea with vomiting, unspecified; F41.9 Anxiety disorder, unspecified; S01.302A Unspecified open wound of left ear, initial encounter; X58.XXXA Exposure to other specified factors, initial encounter; Z96.21 Cochlear implant status
CPT/HCPCS: 36415; 70450; 70496; 70498; 71045; 80048; 80061; 80076; 83735; 83880; 84484; 85025; 85610; 93005; 93306; 96361; 96374; 96375; 99251; 99285; G0378; J1650; J2270; J2765; J7030; Q9967

== ENCOUNTER 2019-05-25 18:39 | Emergency (ER) | payer BC ==
--- OUTSIDE RECORDS SUMMARY | 2019-05-25 18:41 | XMS REPORT ---
:1965 Author Organization [facility] Address [address] [place] [address] Dr. Goode [address] [place] [id number] Care Team Providers Name Role Phone DR MIKY WHITE Unavailable Unavailable Problems This patient has no known problems. Allergies, Adverse Reactions, Alerts This patient has no known allergies or adverse reactions. Medications This patient has no known medications. Encounters Start End Encounter Admission Attending Care Care Encounter Date/Time Date/Time Type Type Clinicians Facility Department ID 2015-08-23 2016-09-27 Outpatient PASCUAL [facility] BALANCE PT [id number] 07:23:00 23:59:00 MIKY
[2019-05-25 19:52] LABS: Absolute Lymphocytes (CBC) 3.1 K/uL (0.7-4.9); Basophils % 1.1 % (0-1.3); Hematocrit 42.6 % (36.0-45.0); MPV 8.5 fL (7.6-11.3)
[2019-05-25 19:57] LABS: Protime INR 0.96
--- NOTE | 2019-05-25 20:12 | RAD REPORT ---
EXAM DESCRIPTION: CT - Chest For Pe Angio - 05/25/2019 7:52 pm CLINICAL HISTORY: sob COMPARISON: None. TECHNIQUE: Dynamically enhanced axial 3 mm thick images of the chest were obtained during administra tion of <100> mL Isovue 370 IV contrast. Coronal and oblique reconstruction images were generated and reviewed. Exam utilizes a protocol for optimal evaluation of pulmonary arterial tree. Maximum intensity projections 3D imaging was utilized All CT scans are performed using dose optimization technique as appropriate and may include automated exposure control or mA/KV adjustment according to patient size. FINDINGS: A pulmonary embolus is not seen. A thoracic aortic aneurysm is not noted. A pleural effusion is not seen. A pericardial effusion is not seen. A lung consolidation is not present. Fatty liver . 26 millimeter cyst suspected within the left lobe IMPRESSION: Negative for a pulmonary embolism.
[2019-05-25 20:17] LABS: ALT/SGPT 30 U/L (12-78); AST/SGOT 9 U/L (15-37); Albumin 3.8 g/dL (3.4-5.0); Alkaline Phosphatase 114 U/L (45-117); BUN Blood Urea Nitrogen 15 mg/dL (7-18); Bicarbonate 27 mmol/L (21-32); Bilirubin Direct < 0.1 mg/dL (0-0.2); Bilirubin Total 0.3 mg/dL (0.2-1.0); Creatine Phosphokinase 30 U/L (26-192); Glucose Level 89 mg/dL (74-106); Lipase 93 U/L (73-393); Magnesium 2.4 mg/dL (1.8-2.4); NT PRO-BNP 67 pg/mL (<125); Potassium 3.7 mmol/L (3.5-5.1); Protein, Total 7.2 g/dL (6.4-8.2); Sodium Level 144 mmol/L (136-145); Troponin (Emerg Dept Use Only) < 0.02 ng/mL (0.0-0.045)
[2019-05-25] MEDS ORDERED: IPRATROPIUM BROM 0.5MG/2.5ML ONE (20:51)
--- NOTE | 2019-05-25 20:51 | ER ---
Nurse's Notes [facility] Name: Rubina Bhatia Age: 53 yrs Sex: Female : 1965 Arrival Date: 05/25/2019 Time: 18:43 Bed 5 Private MD: Diagnosis: Bronchitis, not specified as acute or chronic Presentation: 05/24 18:55 Chief complaint: Patient states: Friday went to the doctor, prescribed with Z-pac, ca1 steroids and inhaler for cough 1 wk prior to the doctor's visit. Friday, leg pains started, chest pains and cough has not gotten better. Today, blood works and chest xray done and instructed to come to the ER for possible blood clots. Coronavirus screen: The patient has NOT traveled to [place] in the past 14 days. The patient has NOT had contact with known and/or suspected case of Coronavirus. Ebola Screen: Patient negative for fever greater than or equal to 101.5 degrees Fahrenheit, and additional compatible Ebola Virus Disease symptoms Patient denies exposure to infectious person. Patient denies travel to an Ebola-affected area in the 21 days before illness onset. No symptoms or risks identified at this time. Initial Sepsis Screen: Does the patient meet any 2 criteria? No. Patient's initial sepsis screen is negative. Does the patient have a suspected source of infection? No. Patient's initial sepsis screen is negative. Risk Assessment: Do you want to hurt yourself or someone else? Patient reports no desire to harm self or others. Onset of symptoms was May 25, 2019. 18:55 Method Of Arrival: Wheelchair ca1 18:55 Acuity: LI 3 ca1 CLEARANCE CUTTER: 19:04 LMP N/A - Ablation ca1 Historical: - Allergies: 19:04 Surgical Tape; ca1 - Home Meds: 19:04 Prednisone Oral [Active]; Azithromycin Oral [Active]; ca1 - PMHx: 19:04 None; ca1 - PSHx: 19:04 Brain Tumor; Acoustic Neuroma; Breast Lump; Cholecystectomy; Uterine Ablation; ca1 - Immunization history:: Adult Immunizations up to date, Flu vaccine is not up to date. - Social history:: Smoking status: Patient denies any tobacco usage or history of. Screenin:52 Abuse screen: Denies threats or abuse. Denies injuries from another. Nutritional lp1 screening: No deficits noted. Tuberculosis screening: No symptoms or risk factors identified. Fall Risk None identified. Assessment: 19:35 General: Appears uncomfortable, Behavior is calm, cooperative. Pain: Complains of pain ah in chest Pain does not radiate. Pain at worst was 9 out of 10 on a pain scale. Quality of pain is described as aching, Pain began 2-3 days ago. Is continuous. Neuro: Level of Consciousness is awake, alert, Oriented to person, place, time. Cardiovascular:. Respiratory: Reports shortness of breath at rest Respiratory effort is even, unlabored, Respiratory pattern is regular, symmetrical. GI: No signs and/or symptoms were reported involving the gastrointestinal system. Bowel sounds present X 4 quads. : No signs and/or symptoms were reported regarding the genitourinary system. EENT: No signs and/or symptoms were reported regarding the EENT system. Derm: No signs and/or symptoms reported regarding the dermatologic system. Musculoskeletal: No signs and/or symptoms reported regarding the musculoskeletal system. 20:53 Reassessment: Patient appears in no apparent distress at this time. Patient and/or ah family updated on plan of care and expected duration. Pain level reassessed. Patient is alert, oriented x 3, equal unlabored respirations, skin warm/dry/pink. Duoneb treatment started at this time. no needs voiced at this time. Vital Signs: 19:04 BP 126 / 70; Pulse 69; Resp 16 S; Temp 98.4(O); Pulse Ox 96% on R/A; Weight 77.11 kg ca1 (R); Height 5 ft. 3 in. (160.02 cm) (R); Pain 7/10; 19:30 BP 125 / 80; Pulse 72; Resp 15; Pulse Ox 97% on R/A; lp1 20:45 BP 125 / 70; Pulse 67; Resp 16; Pulse Ox 97% ; ah 19:04 Body Mass Index 30.11 (77.11 kg, 160.02 cm) ca1 ED Course: 18:43 Patient arrived in ED. mr 19:00 Triage completed. ca1 19:04 Arm band placed on right wrist. ca1 19:19 EKG done, by ED staff. lt1 19:20 Door closed. Warm blanket given. lt1 19:22 Cali Bonilla MD is Attending Physician. tw4 19:29 Tipton, Elizabeth, RN is Primary Nurse. lp1 19:30 Patient has correct armband on for positive identification. Placed in gown. Bed in low lp1 position. quality assurance monitor on. Pulse ox on. NIBP on. 19:45 Inserted saline lock: 20 gauge in left antecubital area, using aseptic technique. 19:52 CT Chest For PE Angio In Process Unspecified. EDHI 19:[address]. 20:02 Notified ED physician of a critical lab result(s). D-dimer of 1020. j 21:15 No provider procedures requiring assistance completed. IV discontinued, intact, bleeding controlled, No redness/swelling at site. Pressure dressing applied. Administered Medications: 20:51 Drug: DuoNeb (3:1) (2.5 mg - 0.5 mg) 3 ml Route: Nebulizer; 21:15 Follow up: Response: No adverse reaction Outcome: 20:50 Discharge ordered by . [facility] 21:15 Discharged to home ambulatory. 21:15 Condition: good 21:15 Discharge instructions given to patient, Instructed on discharge instructions, follow up and referral plans. medication usage, Demonstrated understanding of instructions, follow-up care, medications, Prescriptions given X 3. 21:37 Patient left the ED. Signatures: Dispatcher [employer] [facility] Stacy Theodore Elizabeth Tipton, RN RN lp1 Slick Luong RN RN Cali Durán MD MD 4 Priyanka Rodriguez RN RN ca1 Tran, Leah [facility] Cynthia Becker, EUGENE KNIGHT
--- NOTE | 2019-05-25 20:51 | EDPHYS ---
Physician Documentation [facility] Name: Rubina Bhatia Age: 53 yrs Sex: Female : 1965 Arrival Date: 05/25/2019 Time: 18:43 Bed 5 Private MD: ED Physician Cali Bonilla HPI: 05/24 19:53 This 53 yrs old Female presents to ER via Wheelchair with complaints of tw4 Abnormal Lab Results. 19:53 The patient has shortness of breath at rest. Onset: The symptoms/episode began/occurred tw4 2 month(s) ago. Duration: The symptoms are continuous, and are steadily getting worse. The patient's shortness of breath is aggravated by coughing. Associated signs and symptoms: Pertinent positives: non-productive cough, fever, Pertinent negatives: chest pain, diaphoresis, dizziness, hemoptysis, loss of consciousness, nausea, numbness in extremities, visual changes, vomiting. Severity of symptoms: At their worst the symptoms were moderate in the emergency department the symptoms are unchanged. The patient has not experienced similar symptoms in the past. 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 - Social history:: Smoking status: Patient denies any tobacco usage or history of. ROS: 19:53 Constitutional: Negative for fever, chills, and weight loss, Eyes: Negative for injury, tw4 pain, redness, and discharge, Cardiovascular: Negative for chest pain, palpitations, and edema, Abdomen/GI: Negative for abdominal pain, nausea, vomiting, diarrhea, and constipation, Back: Negative for injury and pain, MS/Extremity: Negative for injury and deformity, Skin: Negative for injury, rash, and discoloration, Neuro: Negative for headache, weakness, numbness, tingling, and seizure. 19:53 Respiratory: Positive for cough, shortness of breath. Exam: 19:53 Constitutional: This is a well developed, well nourished patient who is awake, alert, tw4 and in no acute distress. Head/Face: Normocephalic, atraumatic. Chest/axilla: Normal chest wall appearance and motion. Nontender with no deformity. No lesions are appreciated. Cardiovascular: Regular rate and rhythm with a normal S1 and S2. No gallops, murmurs, or rubs. Normal PMI, no JVD. No pulse deficits. Respiratory: Lungs have equal breath sounds bilaterally, clear to auscultation and percussion. No rales, rhonchi or wheezes noted. No increased work of breathing, no retractions or nasal flaring. Abdomen/GI: Soft, non-tender, with normal bowel sounds. No distension or tympany. No guarding or rebound. No evidence of tenderness throughout. Back: No spinal tenderness. No costovertebral tenderness. Full range of motion. MS/ Extremity: Pulses equal, no cyanosis. Neurovascular intact. Full, normal range of motion. Neuro: Awake and alert, GCS 15, oriented to person, place, time, and situation. Cranial nerves II-XII grossly intact. Motor strength 5/5 in all extremities. Sensory grossly intact. Cerebellar exam normal. Normal gait. Vital Signs: 19:04 BP 126 / 70; Pulse 69; Resp 16 S; Temp 98.4(O); Pulse Ox 96% on R/A; Weight 77.11 kg ca1 (R); Height 5 ft. 3 in. (160.02 cm) (R); Pain 7/10; 19:30 BP 125 / 80; Pulse 72; Resp 15; Pulse Ox 97% on R/A; lp1 20:45 BP 125 / 70; Pulse 67; Resp 16; Pulse Ox 97% ; ah 19:04 Body Mass Index 30.11 (77.11 kg, 160.02 cm) ca1 MDM: 19:22 Patient medically screened. tw4 21:02 Differential diagnosis: reactive airway disease. Antibiotic administration: Not tw4 indicated. Data reviewed: vital signs, nurses notes. Data interpreted: Pulse oximetry: Interpretation: normal. Test interpretation: by ED physician or midlevel provider: ECG, plain radiologic studies. Counseling: I had a detailed discussion with the patient and/or guardian regarding: the historical points, exam findings, and any diagnostic results supporting the discharge/admit diagnosis. Special discussion: I discussed with the patient/guardian in detail that at this point there is no indication for admission to the hospital. It is understood, however, that if the symptoms persist or worsen the patient needs to return immediately for re-evaluation. 05/24 19:23 Order name: BMP tw 05/24 19:23 Order name: CBC with Diff 05/24 19:23 Order name: Ckmb; Complete Time: 20:23 05/24 20:23 Interpretation: Within normal limits: CKMB 1.0. 05/24 19:23 Order name: CPK; Complete Time: 20:23 05/24 20:23 Interpretation: Within normal limits: CPK 30. 05/24 19:23 Order name: D-Dimer 05/24 19:23 Order name: Hepatic Function 05/24 19:23 Order name: Lipase; Complete Time: 20:23 05/24 20:23 Interpretation: Within normal limits: LIP 93. 05/24 19:23 Order name: Magnesium; Complete Time: 20:23 05/24 20:23 Interpretation: Within normal limits: MG 2.4. 05/24 19:23 Order name: NT PRO-BNP; Complete Time: 20:23 05/24 20:23 Interpretation: Within normal limits: NT PRO-BNP 67. 05/24 19:23 Order name: PT-INR; Complete Time: 20:23 05/24 20:23 Interpretation: Within normal limits: PT 11.3. 05/24 19:23 Order name: Ptt, Activated; Complete Time: 20:23 05/24 20:23 Interpretation: Within normal limits: PTT 31.4. 05/24 19:23 Order name: Troponin (emerg Dept Use Only); Complete Time: 20:23 05/24 20:23 Interpretation: Within normal limits: TROPED < 0.02. 05/24 20:18 Order name: Flu lp1 05/24 19:23 Order name: CT Chest For PE Angio; Complete Time: 20:22 05/24 20:22 Interpretation: No acute disease. 05/24 19:23 Order name: EKG; Complete Time: 19:24 05/24 19:23 Order name: Cardiac monitoring; Complete Time: 19:29 tw4 05/24 19:23 Order name: EKG - Nurse/Tech; Complete Time: 19:29 tw4 05/24 19:23 Order name: IV Saline Lock; Complete Time: 19:45 tw4 05/24 19:23 Order name: Labs collected and sent; Complete Time: 19:45 tw4 05/24 19:23 Order name: O2 Per Protocol; Complete Time: 19:29 tw4 05/24 19:23 Order name: O2 Sat Monitoring; Complete Time: :29 tw4 EC:04 Rate is 65 beats/min. Rhythm is regular. QRS [place] is Normal. ME interval is normal. QRS tw4 interval is normal. QT interval is normal. No Q waves. T waves are Normal. No ST changes noted. Clinical impression: Normal ECG. Interpreted by me. Reviewed by me. Administered Medications: 20:51 Drug: DuoNeb (3:1) (2.5 mg - 0.5 mg) 3 ml Route: Nebulizer; 21:15 Follow up: Response: No adverse reaction Disposition: 05/25/19 20:50 Discharged to Home. Impression: Bronchitis, not specified as acute or chronic. - Condition is Stable. - Discharge Instructions: Acute Bronchitis, Adult, How to Use an Inhaler, Upper Respiratory Infection, Adult, Viral Respiratory Infection, [id number]. - Prescriptions for Tessalon Perles 100 mg Oral Capsule - take 1 capsule by ORAL route every 8 hours As needed; 15 capsule. Albuterol Sulfate 90 mcg/actuation - inhale 1-2 puff by INHALATION route every 4-6 hours; 1 Inhaler. Guaifenesin AC 10- 100 mg/5 mL Oral Liquid - take 10 milliliter by ORAL route every 4 hours As needed; 240 milliliter. - Medication Reconciliation Form, Thank You Letter, Antibiotic Education, Prescription Opioid Use form. - Follow up: Private Physician; When: Upon discharge from the Emergency Department; Reason: Recheck today's complaints, Continuance of care, Re-evaluation by your physician. - Problem is new. - Symptoms have improved. Signatures: Dispatcher [employer] Cali Patten MD MD tw4 Priyanka Rodriguez RN EUGENE [facility] Cynthia Becker RN RN Corrections: (The following items were deleted from the chart) 19:26 19:23 Chest Single View+RAD.RAD.BRZ ordered. [facility] EDMS 21:37 20:50 05/25/2019 20:50 Discharged to Home. Impression: Bronchitis, not specified as ah acute or chronic. Condition is Stable. Forms are Medication Reconciliation Form, Thank You Letter, Antibiotic Education, Prescription Opioid Use. Follow up: Private Physician; When: Upon discharge from the Emergency Department; Reason: Recheck today's complaints, Continuance of care, Re-evaluation by your physician. Problem is new. Symptoms have improved. tw4
[2019-05-25] MEDS ORDERED: ALBUTEROL 2.5 MG/3 ML NEB SOL ONE (20:52)
[2019-05-25 23:44] VITALS: TEMP 98.4
[2019-05-25 23:45] VITALS: O2SAT 97
[2019-05-25 23:47] VITALS: BP 125/70
--- NOTE | 2019-05-26 08:24 | EKG ---
Test Date: 2019-05-25 Test Time: 19:13:32 Roving Sizer: MORGANT MEASUREMENT RESULTS: Intervals: Rate: 65 RI: 132 QRSD: 90 QT: 410 QTc: 426 [place]: P: 41 RI: 132 QRS: -6 T: 43 INTERPRETIVE STATEMENTS: Normal sinus rhythm Normal ECG Compared to ECG 09/14/2018 07:45:04 Left-axis deviation no longer present T-wave abnormality no longer present Electronically Signed On 05-26-19 08:24:09 PROPERTY PORTFOLIO OFFICER by Gilles Becker
== END 2019-05-25 21:37 | disposition home or self-care (01) ==
LOC: ER 18:39
DX: J40 Bronchitis, not specified as acute or chronic (principal); Z91.048 Other nonmedicinal substance allergy status
CPT/HCPCS: 93005; 85025; 80048; 36415; 83735; 82550; 85610; 85379; 80076; 85730; 84484; 82553; 83690; 83880; 87804 ×2; 71275; 94640; 99285; Q9967

== ENCOUNTER 2020-11-10 20:44 | Emergency (ER) | payer BC ==
--- OUTSIDE RECORDS SUMMARY | 2020-11-10 20:48 | XMS REPORT | Clinical Summary ---
:1965 Author Organization [facility] Address [address] [place] [address] Care Team Providers Name Role Phone Fredi Ramires MD Primary Care Provider Thao Fink MD Unavailable [phone] OLMAN Flor-VICE PRESIDENT MARKETING & DEVELOPMENT Unavailable Allergies Active Allergy Reactions Severity Noted Date Comments Adhesive Tape-Silicones 08/29/2015 Whit e tape- blisters Hydrocodone 10/21/2013 Wakes up like a "hang over", headache Data migrated f rom [employer] on . Originally docu mented as HYDROCODONE. Data migrated f rom [employer] Cent[employer]ity on . Originally docu mented as HYDROCODONE. Medications Medication Sig Dispensed Refills Start Date End Date Status ibuprofen Take 200 mg by 0 Activ e (ADVIL,MOTRIN) mouth every 6 200 mg tablet (six) hours as needed. mupirocin Apply 1 0 06/16/2017 Active (BACTROBAN) 2% application ointment topically to affected area(s) twice daily. phentermine Take 1 tablet by 0 04/18/2015 Discontinued (ADIPEX-P) 37.5 mouth daily. 1 ( Other ) mg tablet Active Problems Problem Noted Date Multiple nodules of lung 11/10/2019 Overview: Last Assessment & Plan: Formatting of this note might be differe nt from the original. Small solid noncalcified nodules on CT in a low risk patient -no follow up scans indicated. Obstructive sleep apnea syndrome 11/10/2019 Overview: Last Assessment & Plan: Formatting of this note might be differe nt from the original. Based on patients symptoms and medical h istory she has high pretest probability for having АНДРЕЙ. Will proceed with PSG. Simple obesity 11/10/2019 Overview: Last Assessment & Plan: Formatting of this note might be differe nt from the original. Discussed the importance of weight manag ement. 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 12/27/2014 Sensorineural hearing loss, asymmetrical 06/01/2013 Encounters Date Type Specialty Care Team Description 10/06/2020 Hospital Encounter Head and Neck Fredi Ramires Dysphag ia, pharyngoesophageal phase; Surgery Memory lapses; Acoustic neurom a; Dysequilibrium syndrome; Unilateral sens orineural hearing loss of left ear with unrestricted hearing on the contralateral side 10/06/2020 Travel 07/17/2020 Hospital Encounter Radiology Fredi Ramires Dysphagi a, MD pharyngoesophageal phase Nirmala Morrison, PhD 07/17/2020 Travel 07/13/2020 Hospital Encounter Speech Pathology Fredi Ramires Dysp hagia, MD pharyngoesophageal phase Leigha Flor, CCC-VICE PRESIDENT MARKETING & DEVELOPMENT 07/13/2020 Travel 07/05/2020 Hospital Encounter Audiology Fredi Ramires Unilater al sensorineural hearing loss of left ear with unrestricted hearing on the contralateral side (Primary Dx); Acoustic neuroma Patito Velez, Zonia 07/05/2020 Travel 06/30/2020 Orders Only Infectious [place], SARS-CoV-2 vacc ination Diseases MD Amie 06/27/2020 Documentation Head and Neck Too, Guzman Tenorio 06/21/2020 Hospital Encounter Head and Neck Fredi Ramires Dysphag ia, pharyngoesophageal phase (Primary Dx); Surgery Memory lapses; Acoustic neurom a; Dysequilibrium syndrome; Unilateral sens orineural hearing loss of left ear with unrestricted hearing on the contralateral side 06/21/2020 NPR Patient Access Fredi Ramires, Services 06/21/2020 Travel 06/19/2020 Clinical Support Infectious Fredi Ramires, Encounter for Diseases observation for other Torrie Agarwal, suspected ex posure to RN biological agen t ruled out (Primary Dx ) 06/19/2020 Travel 06/16/2020 Travel after 11/11/2019 Surgical History Surgery Date Site/Laterality Comments CHOLECYSTECTOMY 03/24/2000 - 03/23/2001 APPROACH TRANSLABYRINTHINE 09/15/2013 Left acous tic neuroma IMPLANTATION, OSSEOINTEGRATED 03/23/2014 Left BA ELIZABETH IMPLANT, TEMPORAL BONE W/O MASTOIDECTOMY Medical History Medical History Date Comments Hearing loss 2013 Schwannoma Tumor Tooth disorder Nodule in breast removed in 2004 I th ink Cyst of breast removed in 2004 I th ink Chronic bronchitis 2000 usually seasonal abo ut 1 a year Gallstone 2000 surgery removal Urinary tract infection 04/2015 treated with ant ibiotics Urinary incontinence 2014 very inconvinient Sexually transmitted disease 12/26/2004 spouse's af fair - couldn't say for sure Genital herpes simplex 12/26/2004 not sure Menopause recently not confirmed but I get personal saxena Polycystic ovarian syndrome 06/2013 Cyst on righ t ovary Endometriosis 2013 Adenomyosis Disorder of female genital system 06/2013 Tumor in Uterus Fracture ?? left foot hair line Complication of internal prosthetic 03/23/2014 B.A. H.A. screwed in device Diabetes mellitus 08/2013 [facility] was told she had diabetes; 2014 diagnosis removed; on no nedic ations and does not practice restric tive diet Pleurisy 1989 Thrombosis 05/2019 Had a D-dimer test t hat was very elevated. never addr essed. 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 Prostate, Testicle) Hypertension Father Bert Corona Jr. Prostate cancer Father Bert Corona Jr. Stroke Father Bert Corona Jr. -Melanoma Maternal Aunt Sheri Montiel Diabetes Maternal Aunt Sheri Montiel -Melanoma Maternal Aunt Yovana Lopez Diabetes Maternal Aunt Yovana Lopez -Gastrointestinal (Esophagus, Maternal Grandfather Abraham steele Liver, Bile Duct, Stomach, Pancreas, Colon, Rectum, Anus Coronary heart disease (CHD) Maternal Grandfather Abraham bingham -Melanoma Maternal Grandmother Alycia Montiel Diabetes Maternal Grandmother Alycia Montiel -Gynecology (Ovary, Endometrial, Mother Paula Corona Cervix, Vagina) Uterine cancer Mother Paula Corona Stroke Paternal Grandfather Abraham Montiel Pancreatic cancer Paternal Grandmother Maria Luisa -Gynecology (Ovary, Endometrial, Sister Laya [place] da Displasia Cervix, Vagina) Relation Name Status Comments Father Bert Corona Jr. Maternal Aunt Sheri Montiel Maternal Aunt Yovana Lopez Maternal Grandfather Abraham Montiel Maternal Grandmother Alycia Montiel Mother Paula Corona Paternal Grandfather Abraham Montiel Paternal Grandmother Maria Luisa Sister Laya Riosda Social History Tobacco Use Types Packs/Day Years Used Date Former Smoker Cigarettes 1 1 10/23/1983 - 0 03/24/1985 Smokeless Tobacco: Never Used Tobacco Cessation: Ready to Quit: Yes Comments: this was back in high school Alcohol Use Standard Drinks/Week Comments Yes 2 (1 standard drink = 0.6 oz pure wine u sually while cooking - drinks alcohol) at social gatherings Sex Assigned at Date Recorded Female 10/03/2020 8:50 AM CDT Last Filed Vital Signs Vital Sign Reading Time Taken Comments Blood Pressure 134/76 10/06/2020 7:48 AM CDT Pulse 68 10/06/2020 7:48 AM CDT Temperature 36.8 C (98.2 F) 10/06/2020 7:48 AM CDT Respiratory Rate 18 10/06/2020 7:48 AM CDT Oxygen Saturation - - Inhaled Oxygen Concentration - - Weight 81 kg (178 lb 9.2 oz) 10/06/2020 7:48 AM CDT Height 159.5 cm (5' 2.8") 06/21/2020 8:48 AM CDT Body Mass Index 31.84 06/21/2020 8:48 AM CDT Plan of Treatment Not on file Procedures Procedure Name Priority Date/Time Associated Diagnosis Comme nts FL MODIFIED Routine 07/17/2020 12:50 Dysphagia, Results for this BARIUM SWALLOW W PM CDT pharyngoesophageal phase procedure are in SPEECH the results section. COVID-19 Routine 06/19/2020 5:36 Encounter for observatio n Results for this (SARS-COV-2) PM CDT for other suspected procedur e are in PCR-ASYMPTOMATIC exposure to biological t he results [facility] agent ruled out section. after 11/11/2019 Results FL Modified Barium Swallow w Speech (07/17/2020 12:50 PM CDT) Specimen Impressions Performed At Functionally normal modified barium swal low. [id number] Please refer to the separately dictated speech patholo gy report for the complete assessment of the swallow f unction and recommendations. Narrative Performed At FULL RESULT: [id number] Examination: FL MODIFIED BARIUM SWALLO W W SPEECH, 07/17/2020 12:50 PM Clinical History: Left acoustic neuroma status post ex cision with BAHA placement outside facility in 2013 with subsequent con version to connected bone-anchored hearing aid in 2015, now with a globus sensation with solids. Indication: Evaluation of swallow function; globus sen sation with solids, left acoustic neuroma. Comparison: None. Technique: A modified barium swallow was performed w [facility] speech pathology. The patient was given barium mixed with a v ariety of consistencies including thin liquid, pudding, and crac ker to swallow by mouth under video fluoroscopy. Findings: There was no nasopharyngeal reflux. No pen etration or aspiration was seen with thin liquids or solids. There was no pharyngeal residue with thin liquids or solids. Pharyn geal contraction was symmetric. Procedure Note Interface, Radiology Results In - 2020 1:10 PM CDT FULL RESULT: Examination: FL MODIFIED BARIUM SWALLOW W SPEECH, 07/17/2020 12:50 PM Clinical History: Left acoustic neuroma status post excision with BAHA placement outside facility in 2013 with subsequent conversion to connected bone-anchored hearing aid in 2016, now with a globus sensation with solids. Indication: Evaluation of swallow functi on; globus sensation with solids, left acoustic neuroma. Comparison: None. Technique: A modified barium swallow wa s performed with speech pathology. The patient was given barium mixed with a variety of consistencies including thin liquid, pudding, and cracker to swallow by mouth under video fluoroscopy. Findings: There was no nasopharyngeal r eflux. No penetration or aspiration was seen with thin liquids or solids. There was no pharyngeal residue with thin liquids or solids. Pharyngeal contraction was symmetric. IMPRESSION: Functionally normal modified barium swal low. Please refer to the separately dictated speech pathology report for the complete assessment of the swallow function and recommendations. Performing Organization Address City/State/ZIP Code Phon e Number [id number] COVID-19 (SARS-CoV-2) PCR-Asymptomatic [facility] (06/19/2020 5:36 PM CDT) COVID19 (SARS Not Detected Not Detected [facility] CoV-2) Result Comment: [facility] This test is a qualitative r everse-transcriptase polymerase chain reaction (RT- PCR) developed for the Mariano CARMELINA [id number] system and intended for the detection of SARS CoV-2 RNA in human nasopharyngeal specimens from patients who meet COVID-19 clinical and/or epidemiological crite kota. This assay has been approved by the FDA for use only under Emergency Use Authorization (EUA) in laboratories that have been CLIA-certified to perform moderate-complexity and high-complexity tests. The performance characteristics of this assa y were verified by the Microbiology Laboratory at [facility], CLIA Accreditation #: [id number] and CAP Accreditation #: [id number]. Results must be interpreted within the context of all relevant clinical and laboratory findings and shou ld not form the sole basis for a diagnosis or treatment decision. "Presumptive Positive" resul ts are due to partial amplification of SARS-CoV-2 targets and indicates low amounts of virus present in the specimen at or near the limit of detection. Regardless, individuals with "Presumptive Positive" results should be managed per institutional gu idelines as individuals positive for SARS-CoV-2 virus, including use of appropriate infection control protocols. Internal controls are includ ed to assess for possible amplification inhibitors. If inhibition is detected, testing is repeated and if inhibition is confirmed the specimen is resulted as "Invalid". When an "Invalid" result occur, it is recommended to wait 3 days before submitting a new specimen for orly ting if clinically indicated. COVID19 SARS JUDICIAL ADMINISTRATIVE ASSISTANT Swab [facility] COVID19 SARS New Patient [facility] Indication CANCER CENTER Specimen Nasopharyngeal Swab Performing Organization Address City/State/ZIP Code Phon e Number [place] [facility] Unless otherwise noted, [place] [address] AMIGO all lab tests performed by: Division of Pathology and Laboratory Medicine [address] after 11/11/2019 Insurance Payer Benefit Plan / Subscriber ID Effective Dates Phone Addre ss Type Group BLUE CROSS BLUE BCBS PPO POS OUT [id number] 2007-Present PPO [facility] GENERIC [address] (Home) [place] [id number] Rubina Bhatia Personal/Family Self 1965 [address] [place]Home) [place] [id number] Rubina Bhatia Personal/Family Self 1965 [address] (Home) [place] [id number]
--- OUTSIDE RECORDS SUMMARY | 2020-11-10 20:49 | XMS REPORT | Continuity of Care Document ---
:1965 Author Organization [facility] t Address [address] [place] [address] Dr. Umana. [address] [place] [id number] Care Team Providers Name Role Phone [phone] Primary Care Physician Unavailable KEYLA Attending Clinician Unavailable Keyla MCKEON Attending Clinician Tamiko PhD, A Attending Clinician Chacho CCC-SALES PERSON Attending Clinician Rosie Brar Attending Clinician Romelia MCKEON Attending Clinician Coby Gage Attending Clinician Unavailable Stefano RN, L Attending Clinician Unavailable Paulo MCKEON Attending Clinician Karl MCKEON, Nomsanjayn Attending Clinician MIGUEL Attending Clinician Unavailable REHRER Attending Clinician Unavailable ARNAUD Attending Clinician Unavailable DR KEYLA Attending Clinician Unavailable Nikhil Seals Attending Clinician DR KEYLA Admitting Clinician Unavailable Payers Payer Name Policy Type Policy Effective Date Expiration Date Sour ce Number BCBS PPO POS [id number] 2007 OUT OF STATE 001 00:00:00 GENERIC BCBSBCBS CHOICE [address] PPO/FEDERAL 001 00:00:00 Hospital EMPL PPOxxxxxxxxxxx0 -Pre sentPPO Problems Condition Condition Condition Status Onset Resolution Last Treating Co mments Source Name Details Category Date Date Treatment Clinician Date Moderate Moderate Disease Active 2019-03 Metho di persistent persistent 0-07 st asthma asthma 00:00: Hospita without without 00 l complicati complicati on on Obesity Obesity Disease Active Last Methodi due to due to 11-[address] excess excess 00:00: t & Plan: Hospita calories calories 00 Formattin l g of this note might be different from the original. Discussed the importanc e of weight managemen t. Cough Cough Disease Active Methodi 8 st 00:00: Hospita 00 l Lung Lung Disease Active Last Methodi nodules nodules 11-[address] 00:00: t & Plan: Hospita 00 Formattin l g of this note might be different from the original. Small solid noncalcif ied nodules on CT 05/2019 in a low risk patient -no follow up scans indicated . Physical Physical Disease Active Last Metho di deconditio deconditio 11-[address] elijah elijah 00:00: t & Plan: Hospita 00 Formattin l g of this note might be different from the original. Unfortuna sybil activity is limited by balance issues that patient has since time of her neurosurg daron. She recently started water aerobics and is working on [employer] that more regularly . АНДРЕЙ АНДРЕЙ Disease Active Last Methodi (obstructi (obstructi 11-[address] ve sleep ve sleep 00:00: t & Plan: Hos sarah apnea) apnea) 00 Formattin l g of this note might be different from the original. Based on patients symptoms and medical history she has high pretest probabili ty for having АНДРЕЙ. Will proceed with PSG. 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 chronic 3-26 Eleazar rso tension-ty tension-ty 00:00: n pe pe 00 headache headache I88.9 - Diagnosis Active 2016-08-01 Me moria "NONSPECIF 5- 15:12:00 l IC I88.9 - 00:01: Arturo LYMPHADENI "NONSPECIF 00 TIS, UNS" IC LYMPHADENI TIS, UNS" Active 07/22/2016 MARIBEL [place] Cervico-oc Cervico-oc Disease Active 2016-0 M D cipital cipital 1-19 Anderso neuralgia neuralgia 00:00: n 00 Abnormal Abnormal Disease Active gait gait 7-12 Anderso 00:00: n 00 SOB SOB Disease Active Last Methodi (shortness (shortness 6-[address] of breath) of breath) 00:00: t & Plan: Hospita 00 Formattin l g of this note might be different from the original. Broad different ial of cardiac and pulmonary causes. Need to rule out airway etiology. Patient possibly has airway hyper-shruthi ctivity given her h/o episodic SOB and cough and wheezing relieved by bronchodi lators and steroids, along with FHx asthma. Will check:- Echo (?HFpEF, ?PH)- PFTs and 6MWT- CBC with different ial, IgEWill start Breo and monitor symptoms. Patient also likely deconditi oned due to recent weight gain and lack of physical activity. 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 00:00: Hospit a 00 l Acoustic Acoustic Disease Active Metho di neuroma neuroma 5-26 st 00:00: Hospita 00 l Acoustic Acoustic Disease Active 2014-03 neuroma neuroma 0-06 Anderso 00:00: n 00 Sensorineu Sensorineu Disease Active 2013-0 M D ral ral 3-11 Anderso hearing hearing 00:00: n loss, loss, 00 asymmetric asymmetric al al Endometrio Problem Resolve 2016-08-04 Memoria sis of d 01:01:19 l uterus Interior (disorder) Endometrio sis of uterus (disorder) Resolved Problem 08/04/2016 MARIBEL [place] Asthma Problem Resolve 2016-08-04 Agustin kota (disorder) d 01:01:19 l Asthma Interior (disorder) Resolved Problem 08/04/2016 MARIBEL Crane History of Problem Active 2016-08-04 M emoria - neoplasm 01:01:19 l (context-d History 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 Problem 08/04/2016 BENJI Ambrocio Allergies, Adverse Reactions, Alerts Allergy Allergy Status Severity Reaction(s) Onset Inactive Treating Comm ents Source Name Type Date Date Clinician Adhesive Propensi Active White Method i Tape-Kathy ty to 08-28 tape- st icones adverse 00:00: blisters Hospita reaction 00 l s to drug Mupiroci Propensi Active Rash burning Metho di n ty to 08-28 st adverse 00:00: Hospita reaction 00 l s to drug HYDROcod HYDROcod Active Memori a one<sup> one<sup> 7-31 l 1</sup> 1</sup> 05:00: Interior 00 mupiroci mupiroci Active Memori a n n 7-31 l topical< topical< 05:00: Vinay n sup>2</s sup>2</s 00 up> up> Family History Family Member Diagnosis Comments Start Date Stop Date Source Natural father -Genitourinary (Bladder, Kidney, Prostate, Testicle) Natural father Hypertension MD Cruz son Natural father Prostate cancer MD Ashley wayne Natural father Stroke MD Christine steen Natural father Cancer [facility] Maternal aunt -Melanoma MD Parsons Maternal aunt Diabetes MD Parsons Maternal -Gastrointestinal MD Eleazar thomas grandfather (Esophagus, Liver, Bile Duct, Stomach, Pancreas, Colon, Rectum, Anus Maternal Coronary heart MD Christine steen grandfather disease (CHD) Maternal -Melanoma MD Parsons grandmother Maternal Diabetes MD Parsons grandmother Natural mother Uterine cancer Natural mother [facility] Paternal Stroke MD Parsons grandfather Paternal Pancreatic cancer MD Eleazar thomas grandmother Natural sister -Gynecology (Ovary, M D Issa Endometrial, Cervix, Vagina) Social History Social Habit Start Date Stop Date Quantity Comments Source Cigarettes smoked 2020-06-22 2020-06-22 MD Eleazar thomas current (pack per 00:00:00 00:00:00 day) - Reported Cigarette 2020-06-22 2020-06-22 MD Parsons pack-years 00:00:00 00:00:00 Tobacco use and 2020-03-08 2020-03-08 Never used [facility]ai exposure 00:00:00 00:00:00 Hospital Alcohol intake 2020-03-08 2020-03-08 Current drinker Metho dist 00:00:00 00:00:00 of alcohol Hospital (finding) Tobacco Comment 2019-06-09 2019-06-09 pt only smoked Metho dist 00:00:00 00:00:00 for one year Hospital Alcohol Comment 2015-09-04 2015-09-04 3-4/ week [facility] 00:00:00 00:00:00 Hospital History of tobacco 1983-10-23 1985-03-24 Current smoker MD Parsons use 00:00:00 00:00:00 Sex [birth year] [facility] 00:00:00 00:00:00 Hospital Smoking Status Start Date Stop Date Source Former smoker 2020-03-08 00:00:00 2020-03-08 00:00:00 [facility] Social History [facility] Medications Ordered Filled Start Stop Current Ordering Indication Dosage Frequency Signature Comments Components Source Medication Medication Date Date Medication? Clinician (SIG) Name Name ibuprofen Yes 200mg Take 200 MD (ADVIL,MOTR 7-16 mg by Anderso [place]) 200 mg 12:57: mouth n tablet 09 every 6 (six) hours as needed. predniSONE 2019-03 2020- No [id number] 40mg QD Take 2 M ethodi (DELTASONE) 0-07 10-[address] 20 mg 00:00: 04:59 (40 mg Hospita tablet 00 :00 total) by l mouth daily for 5 days. To start taking only if starts having wheezing. amoxicillin 2019-03 Yes 1{tbl} Q.5D Take 1 Me thodi -pot 0-[address] clavulanate 00:00: mouth 2 Hos sarah (AUGMENTIN) 00 (two) l 875-125 mg times a per tablet day. fluticasone Yes [id number] QD Inhale 1 Methodi furoate-jordan 8-[address] anteroL 00:00: s daily. Hospit a (Breo 00 l Ellipta) 200-25 mcg/dose blister with device powder for inhalation albuterol 2019-0 Yes [id number] 2.5mg Q6H Take 3 mL Methodi (ACCUNEB) 3-18 (2.[address] 2.5 mg /3 00:00: total) by Hos sarah mL (0.083 00 nebulizati l %) on every 6 nebulizer (six) solution hours as needed for wheezing. mupirocin Yes 1{appli Apply 1 (BACTROBAN) 06-16 cation} applicatio Anderso 2% ointment 00:00: n n 00 topically to affected area(s) twice daily. phentermine 2020- No 1{tbl} Take 1 M D (ADIPEX-P) 04-18 tablet by And erso 37.5 mg 00:00: 00:00 mouth n tablet 00 :00 daily. Immunizations Ordered Immunization Filled Immunization Date Status Commen ts Source Name Name Tdap 2017-07-15 Completed [facility] 00:00:00 Hospital Vital Signs Vital Name Observation Time Observation Value Comments Source HEIGHT 2020-06-21 08:48:00 159.5 cm WEIGHT 2020-06-21 08:48:00 81.7 kg HEIGHT 2020-06-21 08:48:00 159.5 cm WEIGHT 2020-06-21 08:48:00 81.7 kg Systolic blood 2020-10-06 12:48:43 134 mm[Hg] pressure Diastolic blood 2020-10-06 12:48:43 76 mm[Hg] MD Ashley wayne pressure Heart rate 2020-10-06 12:48:43 68 /min MD Cruz steven Body temperature 2020-10-06 12:48:43 36.78 Parisa MD Daniel garcia Respiratory rate 2020-10-06 12:48:43 18 /min MD Daniel garcia Body weight 2020-10-06 12:48:43 81 kg Anthony son BMI 2020-10-06 12:48:43 31.84 kg/m2 MD Cruz son Body height 2020-06-21 13:48:00 159.5 cm MD Cruz son Body height 2019-12-29 14:17:00 160 cm [facility] Body weight 2019-12-29 14:17:00 78.019 kg [facility] BMI 2019-12-29 14:17:00 30.47 kg/m2 [facility] Procedures Procedure Date / Time Performing Clinician Source Performed [place] MODIFIED BARIUM SWALLOW 2020-07-17 17:50:59 Kwame Rothman W SPEECH COVID-19 (SARS-COV-2) 2020-06-19 22:36:00 Fady Platt MD And griselda MARSH-ADRIAN AMB REFERRAL TO SLEEP 2019-12-14 12:45:00 [facility] MEDICINE CT CHEST WO CONTRAST 2019-12-10 21:53:34 [facility] SIX MINUTE WALK W/ PULSE 2019-12-10 20:15:11 [facility] OXIMETRY [place] TTE COMPLETE, WO CONTRAST, 2019-12-10 19:15:00 [facility] W DOPPLER ([id number]) SPIROMETRY, DIFFUSION, 2019-12-10 19:11:08 [facility] LUNG VOLUMES [place] Endometrial ablation 2013-03-24 06:00:00 Yakov l Interior Cyst of breast<sup>1</sup> 2005-03-24 06:00:00 [facility] Cholecystectomy 2000-03-24 06:00:00 [facility] Insertion of hearing [facility] He rmann implant into middle ear Removal of vestibular [facility]<sup>2</sup> Plan of Care Planned Activity Planned Date Details Comments Source Future Scheduled Test COVID-19 VACCINE (1) [facility] [code = COVID-19 VACCINE (1)] Future Scheduled Test Hepatitis C screening [facility] (procedure) [code = 175834240] Future Scheduled Test Screening for malignant [facility] neoplasm of cervix (procedure) [code = 238205697] Future Scheduled Test BREAST CANCER SCREENING [facility] [code = BREAST CANCER SCREENING] Future Scheduled Test COLONOSCOPY SCREENING [facility] [code = COLONOSCOPY SCREENING] Future Scheduled Test SHINGLES VACCINES (#1) [facility] [code = SHINGLES VACCINES (#1)] Future Scheduled Test INFLUENZA VACCINE [code [facility] = INFLUENZA VACCINE] Encounters Start End Encounter Admission Attending Care Care Encounter Source Date/Time Date/Time Type Type Clinicians Facility Department ID 2020-10-06 2020-10-06 Outpatient SUZI WHITE MDA MDA [id number] 07:21:28 23:59:00 MIKY steen 2020-07-12 2020-07-12 Travel 1.2.840.1 [id number] [id number] Methodi 00:00:00 00:00:[address] 3.430.2.7 0.2.7.3.698 Ho spita .3.530738 084.8 l .8 2020-06-21 2020-06-21 Outpatient SUZI WHITE MDA MDA [id number] 08:32:14 23:59:00 MIKY steen 2020-06-21 2020-06-21 Outpatient SUZI WHITE MDA MDA [id number] 08:27:29 08:27:29 MIKY steen 2020-06-19 2020-06-19 Outpatient SUZI WHITE MDA MDA [id number] 17:32:01 18:04:25 MIKY steen 2020-03-08 2020-03-08 Telemedici Paulo, 1.2.840.1 [id number] Methodi 08:38:45 08:55:37 or Charles [address]1.[address] 3.430.2.7 Hospit a .3.770686 l .8 2020-03-08 2020-03-08 Outpatient [facility] [id number] [address] [place] [address] 00:00:00 00:00:[address] 2020-03-08 2020-03-08 Travel 1.2.840.1 1.2.097.733 [id number] Methodi 00:00:00 00:00:[address] 3.430.2.7 0.2.7.3.698 Ho spita .3.790876 084.8 l .8 2020-03-03 2020-03-03 Telephone Paulo, 1.2.840.1 [id number] Methodi 00:00:00 00:00:[address] 3.430.2.7 Hospit a .3.016936 l .8 2019-12-29 2019-12-29 Telephone Paulo, 1.2.840.1 [id number] Methodi 09:16:41 09:46:41 Consult Charles [address]90.1.[address] 3.430.2.7 Hospit a .3.840007 l .8 2019-12-29 2019-12-29 [facility] [id number] [address] [place] [address] 00:00:00 00:00:[address] CHARLES [address] 2019-12-13 2019-12-13 Travel 1.2.840.1 1.2.524.183 [id number] Methodi 00:00:00 00:00:[address] 3.430.2.7 0.2.7.3.698 Ho spita .3.747666 084.8 l .8 2019-12-10 2019-12-10 [facility], 1.2.840.1 [id number] Methodi 19:30:00 23:59:00 Encounter [place] [address] [place] 3.430.2.7 Hospit a .3.650014 l .8 2019-12-10 2019-12-10 [facility], 1.2.840.1 [id number] Methodi 16:26:24 23:59:00 Encounter [place] [address]207.1.[address] [place]oma[place] 3.430.2.7 Hospit a .3.431744 l .8 2019-12-10 2019-12-10 [facility], 1.2.840.1 [id number] Methodi 14:08:27 16:25:00 Encounter [place] [address]73.[address] [place] 3.430.2.7 Hospit a .3.923643 l .8 2019-12-10 2019-12-10 [facility], 1.2.840.1 [id number] Methodi 13:00:00 14:07:00 Encounter [place] [address]16.[address] [place] 3.430.2.7 Hospit a .3.036462 l .8 2019-12-10 2019-12-10 Travel 1.2.840.1 1.2.956.481 [id number] Methodi 00:00:00 00:00:[address] 3.430.2.7 0.2.7.3.698 Ho spita .3.948979 084.8 l .8 2019-12-10 2019-12-10 Outpatient [facility] [id number] [place] 00:00:00 00:00:00 [place]ON 001 Method i 2019-12-10 2019-12-10 Outpatient [facility] [id number] [place] 00:00:00 00:00:00 L[place]ON 002 Method i 2019-12-10 2019-12-10 Outpatient [facility] [id number] [place] 00:00:00 00:00:00 LONDON 058 Method i 2019-12-10 2019-12-10 Outpatient [facility] [id number] [place] 00:00:00 00:00:00 LONDON 580 Method i 2019-11-18 2019-11-18 Travel 1.2.840.1 1.2.599.136 [id number] Methodi 00:00:00 00:00:[address] 3.430.2.7 0.2.7.3.698 Ho spita .3.991863 084.8 l .8 2019-11-16 2019-11-16 Travel 1.2.840.1 1.2.951.108 [id number] Methodi 00:00:00 00:00:[address] 3.430.2.7 0.2.7.3.698 Ho spita .3.348059 084.8 l .8 2019-11-16 2019-11-16 Orders Paulo, 1.2.840.1 [id number] Methodi 00:00:00 00:00:00 Only Charles 8[address]73.1.[address] 3.430.2.7 Hospit a .3.081868 l .8 2019-11-11 2019-11-11 Travel 1.2.840.1 1.2.657.879 [id number] Methodi 00:00:00 00:00:[address] 3.430.2.7 0.2.7.3.698 Ho spita .3.571376 084.8 l .8 2019-11-10 2019-11-10 Outpatient PAULO, [facility] [id number] [place] 00:00:00 00:00:00 CHARLES 805 Method i 2019-06-10 2019-06-10 Outpatient MIGUEL, [facility] [id number] [place] 00:00:00 00:00:00 YOANA 521 Metho di 2019-06-09 2019-06-09 Emergency REHRER, [facility] 064 [id number] [place] 00:00:00 00:00:00 JOSE MANUEL 774 Method i 2019-05-28 2019-05-28 Emergency LARES, [facility] 064 [id number] [place] 00:00:00 00:00:00 JILL 367 Method i 2016-11-13 2016-11-13 Outpatient MHIE MHIE [id number] Memoria 08:30:00 08:30:00 05 sherri Morris 2015-08-23 2016-09-27 Outpatient Yobany WHITE [facility] [id number] [facility] 07:23:00 23:59:00 MIKY [facility] 2016-08-13 2016-08-13 Outpatient MHIE MHIE [id number] Memoria 09:30:00 09:30:00 04 sherri Morris 2016-08-01 2016-08-02 Outpt Diag nullFlavo [facility] [id number] Memoria 20:03:00 04:59:00 Services r Outpatient 00 l Katt Morris Crane 2016-08-01 2016-08-01 Outpatient Elhor MHOIP MHOIP [id number] 15:03:00 23:59:00 Jonatan Seals 2016-07-18 2016-07-18 Outpatient MHIE MHIE [id number] Memoria 13:30:00 13:30:00 03 sherri Morris 2016-07-09 2016-07-09 Outpatient [facility] [id number] Memoria 14:15:00 14:15:00 02 sherri Mroris 2015-06-14 2015-06-14 Outpatient [facility] [id number] Memoria 10:00:00 10:00:00 01 sherri Morris Results Test Description Test Time Test Comments Results Result Sourc e Comments FL Modified 2020-07-17 Functionally normal MD Daniel garcia Barium Swallow w 18:08:24 modified barium Speech swallow. Please refer to the separately dictated speech pathology report for the complete assessment of the swallow function and recommendations. Interface, Radiology Results In - 07/17/2020 1:10 PM CDT FULL RESULT: Examination: FL MODIFIED BARIUM SWALLOW W SPEECH, 07/17/2020 12:50 PMClinical History: Left acoustic neuroma status post excision with BAHA placement outside facility in 2013 with subsequent conversion to connected bone-anchored hearing aid in 2015, now with a globus sensation with solids.Indication: Evaluation of swallow function; globus sensation with solids, left acoustic neuroma.Comparison: None.Technique: A modified barium swallow was performed with speech pathology. The patient was given barium mixed with a variety of consistencies including thin liquid, pudding, and cracker to swallow by mouth under video fluoroscopy.Finding s: There was no nasopharyngeal reflux. No penetration or aspiration was seen with thin liquids or solids. There was no pharyngeal residue with thin liquids or solids. Pharyngeal contraction was symmetric.IMPRESSIO N:Functionally normal modified barium swallow.Please refer to the separately dictated speech pathology report for the complete assessment of the swallow function and recommendations. COVID-19 (SARS-CoV-2) PCR-Asymptomatic 2020-06-20 08:23:3 7 Test Item Value Reference Range Interpretation Comme nts COVID19 (SARS CoV-2) Not Detected Not Detected This te st is a qualitative Result (test code = reverse- transcriptase polymerase 99292-7) chain reaction (RT-PCR) developed for the [employer] system and intended fo r the detection of SARS CoV-2 RNA in human nasopharyngeal specimens from patients who me et COVID-19 clinical and/or epidemiological criteria. This assay has been approved by the FDA for use only under Emergency Use Authorization (EUA) in labora tories that have been CLIA-certi fied to perform moderate-comple xity and high-complexity tests. The performance andrea racteristics of this assay were verified by the Microbiology La bor[facility] at [facility] CLIA Accreditation # : [id number] and CAP Accreditati on #: [id number]. Results must be interpreted within the context of all relevant clinical and la boratory findings and should not form the sole basis for a diagnosis or treatment decision. "Pres umptive Positive" results are due to partial amplification o f SARS-CoV-2 targets and ind icates low amounts of virus presen t in the specimen at or near the limit of detection. Regardless, ind ividuals with "Presumptive Po sitive" results should be manag ed per institutional g uidelines as individuals pos itive for SARS-CoV-2 viru s, including use of appropriate inf ection control protocols. Inte rnal controls are included to ass ess for possible amplification i nhibitors. If inhibition is d etected, testing is repeated and if inhibition is confirmed the s pecimen is resulted as "Invalid". W hen an "Invalid" result occur, i t is recommended to wait 3 days bef ore submitting a new specimen fo r testing if clinically reynold cated. COVID19 SARS Source CLERK ENTRY LEVEL Swab (test code = 09874) COVID19 SARS Indication New Patient (test code = 93838) MD ParsonsTransthoracic Echocardiogram Complete, (w Contrast, Strain and 3D if needed)2019-12-13 19:38:00 Echocardiography Report [address] [place] [address] Pat.Name: ABI KURTZ Pat.ID: [id number] St.Date: 12/10/2019 Refer.MD: LONDON BHATIA MD.Exam Time: 1:07:00 PM Study Type:Routine Echo Height: 63in Weight: 170lb BSA: 1.81 m2 Age: 7 1965,54Y Sex: FEMALE BP: 142/63 HR: 65 bpm Sonogrphr: Amaris Dinh RDCS Pat. Stat.:Outpatient Room: [facility] 16 Study Status:Final Echo Event ID:[id number] Order ID: [id number] Reason for Study:SOB Procedures: 2D Echo, Colorflow Doppler, StrainRace: SUMMARY:-------- LV EF is normal.RV systolic function is normal.LA size is normal.Normal diastolic function and LV filling pressures.Insufficient TR jet to estimate PA systolic pressure.----- FINDINGS: LV: LV size is normal. Normal average LV global longitudinal strain at -18.7%. LV EF is normal. Overall wall motion is normal. Estimated EF is 60-64%.RV: RV size is normal. RV systolic function isnormal.LA: LA size is normal.RA: RA size is normal.AO: Aortic root diameter is normal.SILKE: No pericardial effusion.AV: No structural AV abnormalities noted.MV: No structural MV abnormalities noted. Mild mitral regurgitation. PV: No structural PV abnormalities noted.TV: No structural TV abnormalities noted.Marcos: Normal diastolic function and LV filling pressures.Other: Insufficient TR jet to estimate PA systolic pressure. MEASUREMENTS: 2DParasternal Long [place] Ao Rtd 2.9 cm Index 1.6 cm/m2 LA Ds 3.5 cm IVSd 0.7 cm RWT 0.33 LVIDd 4.9cm Index 2.7 cm/m2 LV Mass 121 g (87-129) LVIDs2.9 cm LVM Index 67 g/m2 LV%fs 41 % LVOT 2 cm LVPWd 0.8 cm LA Sng Plane LA Area 16 cm2 (8.8-23.4) LA Vol 38 ml Index 21 ml/m2 LA LngAx 5.3 cm LVOT LVOT Area 3.1 cm2 DOPPLERLVOT For Flow LVOT TVI 21 cm LVOTmnPG 1.8 mmHg LVOTpkVel 84 cm/s HR 58 bpm LVOTpkPG 2.8 mmHg LVOT LVOT SV 66 ml LVOT CO 3.8 l/min SVi 36 ml/m2 LVOT CI 2.1 l/m/m2 Signed 12/13/2019 02:38 Marycarmen Mark MDInterface, Radiology Results In - 12/13/2019 2:38 PM CDT Echocardiography Report [address] [place] [address] Pat.Name: JOSE KURTZ Pat.ID: [id number] .Date: 12/10/2019 Refer.MD: LONDON BHATIA MD.Exam Time: 1:07:00 PM Study Type:Routine Echo Height: 63in Weight: 170lb BSA: 1.81 m2 Age: 7 1965,54Y Sex: FEMALE BP: 142/63 HR: 65 bpm Sonogrphr: Amaris Dinh RDCS Pat. Stat.:Outpatient Room: [facility] 16 Study Status:Final Echo Event ID:[id number] Order ID: [id number] Reason for Study:SOB Procedures: 2D Echo, Colorflow Doppler, StrainRace: SUMMARY:- LV EF is normal.RV systolic function is normal.LA size is normal.Normal diastolic function and LV filling pressures.Insufficient TR jet to estimate PA systolic pressur e. FINDINGS: ---LV: LV sizeis normal. Normal average LV global longitudinal strain at -18.7%. LV EF is normal. Overallwall motion is normal. Estimated EF is 60-64%.RV: RV size is normal. RV systolic function is normal.LA: LA size is normal.RA: RA size is normal.AO: Aortic root diameteris normal.SILKE: No pericardial effusion.AV: No structural AV abnormalities noted.MV:No structural MV abnormalities noted. Mild mitral regurgitation. PV: No structural PVabnormalities noted.TV: No structural TV abnormalities noted.Marcos: Normal diastolic function and LV filling pressures.Other: Insufficient TR jet to estimate PA systolic pressure. MEASUREMENTS: 2DParasternal Long [place] Ao Rtd 2.9 cm Index 1.6 cm/m2LA Ds 3.5 cm IVSd 0.7 cm RWT 0.33 LVIDd 4.9 cm Index 2.7 cm/m2 LV Mass 121 g (87-129) LVIDs 2.9 cm LVM Index 67 g/m2 LV%fs 41 % LVOT 2 cm LVPWd 0.8 cm LA Sng Plane LA Area 16 cm2 (8.8-23.4) LA Vol 38 ml Index 21 ml/m2 LA LngAx 5.3 cm LVOT LVOT Area 3.1 cm2 DOPPLERLVOT For Flow LVOT TVI 21 cm LVOTmnPG 1.8 mmHg LVOTpkVel 84 cm/s HR 58 bpm LVOTpkPG 2.8 mmHg LVOT LVOT SV 66 ml LVOT CO 3.8 l/min SVi 36 ml/m2 LVOT CI 2.1 l/m/m2 Signed 12/13/2019 02:38 [facility] Wo [id number] 22:24:04EXAMINATION: CT CHEST WO CONTRAST CLINICAL HISTORY: R06.02 Shortness of breath, SOB COMPARISON: TECHNIQUE: CT of the chest without intravenous contrast. Absence of contrast decreases sensitivity for detection of focal lesions and vascular pathology. CT imaging was performed with iterative reconstruction techniques and/or automated exposure control to reduce radiation dose. FINDINGS: LUNGS and PLEURA: There are a few tiny 2 mm lung nodules, at least 3 on the right and one left. Theseare all stable from 05/2019. They may represent small intrapulmonary lymph nodes and/or noncalcified granulomas. No new or enlarging pulmonary nodules. No consolidation, effusion or central airway abnormality. HEART and MEDIASTINUM: Thoracic aorta is nonaneurysmal. The main pulmonary artery is normal in caliber. The heart and pericardium are unremarkable. ABDOMEN: Limited images of the upper abdomendemonstrate cholecystectomy clips. There is severe fatty infiltration of the liver. this is similar to prior. Likely 2.1 cm cyst in the left lobe of the liver, stable. BONES and SOFT TISSUES: Unremarkable. IMPRESSION: 1.No CT finding to explain patient's shortness of breath. No acute consolidation or effusion. 2.A few small 2 mm lung nodules, stable. These are favored to be benign such as intrapulmonary lymph nodes and/or noncalcified granulomas. 3.Severe hepatic steatosis, similar to prior. [id number] Interface, Radiology Results Incoming - 12/10/2019 5:27 PM CDT EXAMINATION: CT CHEST WO CONTRASTCLINICAL HISTORY: R06.02Shortness of breath, SOBCOMPARISON: 06/09/2019TECHNIQUE: CT of the chest without intravenous contrast. Absence of contrast decreases sensitivity for detection of focal lesions and vascular pathology.CT imaging was performed with iterative reconstruction techniques and/or automated exposure control toreduce radiation dose. FINDINGS:LUNGS and PLEURA: There are a few tiny 2 mm lung nodules, at least 3 on the right and one left. These are all stable from 05/2019. They may represent small intrapulmonary lymph nodes and/or noncalcified granulomas. No new or enlarging pulmonary nodules.No consolidation,effusion or central airway abnormality.HEART and MEDIASTINUM: Thoracic aorta is nonaneurysmal. The main pulmonary artery is normal in caliber. The heart and pericardium are unremarkable.ABDOMEN: Limited images of the upper abdomen demonstrate cholecystectomy clips. There is severe fatty infiltrationof the liver. this is similar to prior. Likely 2.1 cm cyst in the left lobe of the liver, stable.BONES and SOFT TISSUES: Unremarkable.IMPRESSION:1.No CT finding to explain patient's shortness of breath. No acute consolidation or effusion.2.A few small 2 mm lung nodules, stable. These are favored to be benign such as intrapulmonary lymph nodes and/or noncalcified granulomas.3.Severe hepatic steatosis, similar to prior.[id number] Central Community Hospitalix minute [facility] w/ pulse oximetry 2019-12-10 20:15:11 Test Item Value Reference Range Interpretation Comments Heart Rate at Rest (test code = 55 1/min 5603) SPO2 at Rest (test code = 5604) 98 % BP Systolic at Rest (test code = mmHg 5605) BP Diastolic at Rest (test code = mmHg 5606) Supplemental O2 at Rest (test code 0 L/min = 5607) Heart Rate after 1 minute (test 94 1/min code = 5608) SPO2 after 1 minute (test code = 98 % 5609) Supplemental O2 after 1 minute 0 L/min (test code = 5612) Heart Rate after 2 minutes (test 93 1/min code = 5613) SPO2 after 2 minutes (test code = 98 % 5614) Supplemental O2 after 2 minutes 0 L/min (test code = 5617) Heart Rate after 3 minutes (test 95 1/min code = 5618) SPO2 after 3 minutes (test code = 98 % 5619) Supplemental O2 after 3 minutes 0 L/min (test code = 5622) Heart Rate after 4 minutes (test 99 1/min code = 5623) SPO2 after 4 minutes (test code = 99 % 5624) Supplemental O2 after 4 minutes 0 L/min (test code = 5627) Heart Rate after 5 minutes (test 98 1/min code = 5628) SPO2 after 5 minutes (test code = 98 % 5629) Supplemental O2 after 5 minutes 0 L/min (test code = 5632) Six Minute Walk Distance in m (test 374 m 376.17-654.17 code = 5633) Heart Rate after 6 minutes (test 101 1/min code = 5634) Highest Heart Rate (test code = 101 1/min 5635) SPO2 after 6 minutes (test code = 99 % 5636) Lowest SpO2 (test code = 5637) 97 % BP Systolic after 6 minutes (test mmHg code = 5639) BP Diastolic after 6 minutes (test mmHg code = 5640) Supplemental O2 after 6 minutes 0 L/min (test code = 5641) Lap Count (test code = 5642) Six Minute Walk Distance Predicted (test code = 5645) [facility], lung [id number] 19:11:08 Test Item Value Reference Range Interpretation Comments FEV1 Pre (test code = 2.45 L 2.06-3.18 5348) FEV1/FVC % Pre (test 73.31 % 69.75-89.34 code = 5361) FVC Pre (test code = 3.34 L 2.66-3.99 5354) PEF Pre (test code = 7.15 L/s 4.79-8.08 5367) FEF 25-75% Pre (test 1.72 L/s 1.38-3.76 code = 5547) DLCO Pre (test code = See_Comment [Auto mated message] 5423) The system Bettery generated this result transmitted ref erence range: 15.38 - 28.38 ml/(min*mmHg). The reference range was not used to interpr et this result as normal/abnormal . DL/VA Pre (test code = See_Comment [Aut omated message] 5437) The system [employer] generated this result transmitted ref erence range: 3.30 - 5 .93 ml/(min*mmHg*L) . The reference range was not used to interpr et this result as normal/abnormal . VA SB Pre (test code = 4.91 L 3.75-5.96 5444) DLCOc Pre (test code = See_Comment [Aut omated message] 5430) The system [employer] generated this result transmitted ref erence range: 15.38 - 28.38 ml/(min*mmHg). The reference range was not used to interpr et this result as normal/abnormal . KCOc SB Pre (test code See_Comment [Aut omated message] = 5535) The system [employer] generated this result transmitted ref erence range: 3.30 - 5 .93 ml/(min*mmHg*L) . The reference range was not used to interpr et this result as normal/abnormal . Hb Pre (test code = g(Hb)/dL 5540) R0.5IN Pre (test code See_Comment [Auto mated message] = 5514) The system [employer] generated this result transmitted ref erence range: 3.06 - 3 .06 cmH2O*s/L. The reference range was not used to interpr et this result as normal/abnormal . FRCpl Pre (test code = 2.55 L 1.80-3.45 5388) RV Pre (test code = 1.75 L 1.16-2.31 5402) TLC Pre (test code = 4.89 L 3.74-5.72 5416) RV % TLC Pre (test 35.8 % 27.39-46.57 code = 5409) VC Pre (test code = 3.14 L 2.66-3.99 5374) ERV Pre (test code = 0.8 L 0.89-0.89 5381) IC Pre (test code = 2.34 L 1.98-1.98 5395) sR0.5IN Pre (test code cmH2O*s = 5521) Raw Pre (test code = See_Comment [Autom ated message] 5507) The system [employer] generated this result transmitted ref erence range: 3.06 - 3 .06 cmH2O*s/L. The reference range was not used to interpr et this result as normal/abnormal . sGaw Predicted (test See_Comment [Autom ated message] code = 5528) The system [employer] generated this result transmitted ref erence range: 0.10 - 0 .10 1/(cmH2O*s). Th e reference range was not used to interpr et this result as normal/abnormal . FEV1 Predicted (test code = 5302) FEV1 LLN (test code = 5347) FEV1 % Pre of 93.5 % Predicted (test code = 5308) FVC Predicted (test code = 5307) FVC LLN (test code = 5353) FVC % Pre of Predicted 100.4 % (test code = 5355) FEV1/FVC % Predicted (test code = 5359) FEV1/FVC % LLN (test code = 5360) FEV1/FVC % Pre of 92.2 % Predicted (test code = 5362) FEF 25-75% Predicted (test code = 5546) FEF 25-75% LLN (test code = 5545) FEF 25-75% % Pre of 66.8 % Predicted (test code = 5548) PEF Predicted (test code = 5310) PEF LLN (test code = 5366) PEF % Pre of Predicted 111.2 % (test code = 5368) VC Predicted (test code = 5372) VC LLN (test code = 5373) VC % Pre of Predicted 94.4 % (test code = 5375) ERV Predicted (test code = 5379) ERV LLN (test code = 5380) ERV % Pre of Predicted 89.4 % (test code = 5382) FRCpl % Predicted (test code = 5386) FRCpl % LLN (test code = 5387) FRCpl % Pre of 97.1 % Predicted (test code = 5389) IC Predicted (test code = 5393) IC LLN (test code = 5394) IC % Pre of Predicted 118 % (test code = 5396) RV Predicted (test code = 5400) RV LLN (test code = 5401) RV % Pre of Predicted 101 % (test code = 5403) RV % TLC Predicted (test code = 5407) RV % TLC LLN (test code = 5408) RV % TLC % Pre of 96.8 % Predicted (test code = 5410) TLC Predicted (test code = 5414) TLC LLN (test code = 5415) TLC % Pre of Predicted 103.4 % (test code = 5417) Raw Predicted (test code = 5505) Raw LLN (test code = 5506) Raw % Pre of Predicted 92.6 % (test code = 5508) R0.5IN Predicted (test code = 5512) R0.5IN LLN (test code = 5513) R0.5IN % Pre of 80.1 % Predicted (test code = 5515) sGaw Predicted (test code = 5526) sGaw LLN (test code = 5527) sGaw % Pre of 116.9 % Predicted (test code = 5529) DLCO Predicted (test code = 5421) DLCO LLN (test code = 5422) DLCO % Pre of 91.9 % Predicted (test code = 5424) DLCOc Predicted (test code = 5428) DLCOc LLN (test code = 5429) DLCOc % Pre of 91.9 % Predicted (test code = 5431) DL/VA Predicted (test code = 5435) DL/VA LLN (test code = 5436) DL/VA % Pre of 88.8 % Predicted (test code = 5438) KCOc SB Predicted (test code = 5533) KCOc SB LLN (test code = 5534) KCOc SB % Pre of 88.8 % Predicted (test code = 5536) VA SB Predicted (test code = 5442) VA SB LLN (test code = 5443) VA SB % Pre of 101.1 % Predicted (test code = 5445) [facility]
--- NOTE | 2020-11-10 21:42 | RAD REPORT ---
EXAM DESCRIPTION: Sarmad Montoya (2 Views)11/10/2020 9:34 pm CLINICAL HISTORY: Cough COMPARISON: 2019 FINDINGS: The lungs appear clear of acute infiltrate. The heart is normal size IMPRESSION: No acute abnormalities displayed
--- NOTE | 2020-11-11 00:20 | EDPHYS ---
Physician Documentation [facility] Name: Rubina Bhatia Age: 55 yrs Sex: Female : 1965 Arrival Date: 11/10/2020 Time: 20:49 Bed 12 Private MD: LIZ Physician Adam Mendoza HPI: 11/11 00:16 This 55 yrs old Female presents to ER via Ambulatory with complaints of cough.jmm 00:16 Onset: The symptoms/episode began/occurred 1.5 week(s) ago. Modifying factors: The jmm symptoms are alleviated by nothing. the symptoms are aggravated by nothing. Associated signs and symptoms: Pertinent positives: fever. Is a 55-year-old female no chronic conditions presents emerged part with complaints of cough and congestion, fatigue. tested positive for coronavirus. Patient states she has had 2 - tests. Patient was prescribed azithromycin and prednisone with little relief.. 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 - Social history:: Smoking status: Patient denies any tobacco usage or history of. Patient uses alcohol, weekly. ROS: 11/11 00:16 Constitutional: Positive for body aches, fever. jmm Respiratory: Positive for cough. All other systems are negative. Exam: 00:16 Constitutional: This is a well developed, well nourished patient who is awake, alert, jmm and in no acute distress. Head/Face: atraumatic. Eyes: EOMI, no conjunctival erythema appreciated ENT: Moist Mucus Membranes Neck: Trachea midline, Supple Chest/axilla: Normal chest wall appearance and motion. Cardiovascular: Regular rate and rhythm. No edema appreciated Respiratory: Normal respirations, no respiratory distress appreciated Abdomen/GI: Non distended, soft Back: Normal ROM Skin: General appearance color normal MS/ Extremity: Moves all extremities, no obvious deformities appreciated, no edema noted to the lower extremities Neuro: Awake and alert, normal gait Psych: Behavior is normal, Mood is normal, Patient is cooperative and pleasant Vital Signs: 11/10 21:02 BP 120 / 84; Pulse 69; Resp 20; Temp 98.3(O); Pulse Ox 98% on R/A; Weight 81.65 kg (R); kg Height 5 ft. 4 in. (162.56 cm) (R); Pain 4/10; 21:02 Body Mass Index 30.90 (81.65 kg, 162.56 cm) kg MDM: 23:21 Patient medically screened. [facility] 11/11 00:18 Data reviewed: vital signs, nurses notes. Counseling: I had a detailed discussion with maddison the patient and/or guardian regarding: the historical points, exam findings, and any diagnostic results supporting the discharge/admit diagnosis, lab results, radiology results, the need for outpatient follow up, to return to the emergency department if symptoms worsen or persist or if there are any questions or concerns that arise at home. ED course: Patient is alert and nontoxic in appearance in the ER. I discussed all labs and imaging studies with the patient. Patient will follow up with their primary care provider. Patient understood and agrees with plan of care.. 11/10 23:22 Order name: SARS-COV-2 RT PCR; Complete Time: 23:23 EDMS 11/10 21:10 Order name: Chest Pa And Lat (2 Views) XRAY; Complete Time: 21:46 kg Administered Medications: No medications were administered Disposition: 03:18 Co-signature as Attending Physician, Adam Mendoza MD. [email or web address] Disposition Summary: 11/11/20 00:19 Discharge Ordered Location: Home maddison Condition: Stable maddison Diagnosis - Viral syndrome jaja Followup: maddison - With: Private Physician - When: 2 - 3 days - Reason: Recheck today's complaints, Continuance of care, Re-evaluation by your physician Discharge Instructions: - Discharge Summary Sheet maddison - Symptoms of Coronavirus - [facility] jaja Forms: - Medication Reconciliation Form maddison - Thank You Letter jmm - Antibiotic Education jmm - Prescription Opioid Use [facility] Prescriptions: - ivermectin 3 mg Oral tablet - take 6 tablet by ORAL route as directed Please take 6 tablets by mouth once jmm now, then take another 6 tablets on day 3, 6, and 9; 24 tablet; Refills: 0, Product Selection Permitted - albuterol sulfate 90 mcg/actuation Inhalation HFA aerosol inhaler - inhale 2 puff by INHALATION route every 4 hours; 1 Pump; Refills: 0, Product [facility] Selection Permitted Signatures: Dispatcher [employer] EDMS Hemant Odonnell PA PA jmm Holmes, Maurice, MD MD 7 Shruthi Green, RN RN kg Corrections: (The following items were deleted from the chart) 11/10 21:08 21:05 PSHx: None; kg kg 21:32 21:05 Immunization history: Adult Immunizations not up to date, Client reports kg receiving the 2nd dose of the Covid vaccine, Date received: July 2020 Moderna Client reports receiving the 1st dose of the Covid vaccine, July 2020 Moderna kg 22:27 22:06 CORONAVIRUS+MR.LAB.BRZ ordered. EDMS EDMS
--- NOTE | 2020-11-11 00:20 | ER ---
Nurse's Notes [facility] Name: Rubina Bhatia Age: 55 yrs Sex: Female : 1965 Arrival Date: 11/10/2020 Time: 20:49 Bed 12 Private MD: Diagnosis: Viral syndrome Presentation: 11/10 21:02 Chief complaint: Patient states: Cough, headache, SOB, jaw pain, Fatigue x 2 weeks. Pt kg stated I've been tested twice and both were negative. Taken Z-pack and steroids and no relief. tested positive. Coronavirus screen: Client denies travel out of the [place] in the last 14 days. At this time, unable to obtain information related to travel outside the [place] Client presents with at least one sign or symptom that may indicate coronavirus-19. Standard/surgical mask placed on the client. Provider contacted for isolation considerations. The client reports previous COVID testing was negative. Date of collection: November 06, 2020. Ebola Screen: Patient negative for fever greater than or equal to 101.5 degrees Fahrenheit, and additional compatible Ebola Virus Disease symptoms Patient denies exposure to infectious person. Patient denies travel to an Ebola-affected area in the 21 days before illness onset. Initial Sepsis Screen: Does the patient meet any 2 criteria? No. Patient's initial sepsis screen is negative. Does the patient have a suspected source of infection? No. Patient's initial sepsis screen is negative. Risk Assessment: Do you want to hurt yourself or someone else? Patient reports no desire to harm self or others. 21:02 Method Of Arrival: Ambulatory kg 21:02 Acuity: LI 4 kg Triage Assessment: 21:05 General: Appears in no apparent distress. Behavior is calm, cooperative, appropriate kg for age, quiet. Pain: Complains of pain in back and chest, head Pain radiates to Generalized Pain currently is 4 out of 10 on a pain scale. at worst was 10 out of 10 on a pain scale. level that patient reports is acceptable is 3 out of 10 on a pain scale. Quality of pain is described as aching. Respiratory: Reports shortness of breath cough that is productive. 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 - Social history:: Smoking status: Patient denies any tobacco usage or history of. Patient uses alcohol, weekly. Screenin:02 Abuse screen: Denies threats or abuse. Denies injuries from another. Nutritional zb screening: No deficits noted. Tuberculosis screening: No symptoms or risk factors identified. Fall Risk None identified. Assessment: 21:50 General: Appears in no apparent distress. uncomfortable, Behavior is calm, cooperative, zb appropriate for age. Pain: Denies pain. Neuro: Level of Consciousness is awake, alert, obeys commands, Oriented to person, place, time, situation, Moves all extremities. Full function. Cardiovascular: Patient's skin is warm and dry. Respiratory: Reports cough that is productive, hacking, persistent Airway is patent Respiratory effort is even, unlabored, Respiratory pattern is regular, symmetrical, the patient has moderate shortness of breath. GI: Patient currently denies diarrhea, nausea, vomiting. Derm: Skin is intact, is healthy with good turgor, Skin is moist, Skin is normal, Skin temperature is warm. Musculoskeletal: Range of motion: intact in all extremities. Vital Signs: 21:02 BP 120 / 84; Pulse 69; Resp 20; Temp 98.3(O); Pulse Ox 98% on R/A; Weight 81.65 kg (R); kg Height 5 ft. 4 in. (162.56 cm) (R); Pain 4/10; 21:02 Body Mass Index 30.90 (81.65 kg, 162.56 cm) kg ED Course: 20:49 Patient arrived in ED. es 21:05 Triage completed. kg 21:05 Arm band placed on right wrist. kg 21:32 Chest Pa And Lat (2 Views) XRAY In Process Unspecified. EDMS 21:44 Rosalba Vu, RN is Primary Nurse. zb 21:45 Hemant Odonnell PA is PHCP. [facility] 21:45 Adam Mendoza MD is Attending Physician. [facility] 22:02 Patient has correct armband on for positive identification. Pulse ox on. NIBP on. zb 11/11 00:27 No provider procedures requiring assistance completed. Patient did not have IV access em during this emergency room visit. Administered Medications: No medications were administered Outcome: 00:19 Discharge ordered by . [facility] 00:27 Discharged to home ambulatory. em 00:27 Condition: stable 00:27 Discharge instructions given to patient, Instructed on discharge instructions, follow up and referral plans. medication usage, Demonstrated understanding of instructions, follow-up care, medications, Prescriptions given X 1. 00:31 Patient left the ED. em Signatures: Dispatcher [employer] EDMS Hemant Odonnell PA PA [facility] Anita Javier Edgar RN RN Rosalba Vu RN RN zb Graham, Kristen, RN RN kg Corrections: (The following items were deleted from the chart) 11/10 21:08 21:05 PSHx: None; kg kg 21:32 21:05 Immunization history: Adult Immunizations not up to date, Client reports kg receiving the 2nd dose of the Covid vaccine, Date received: July 2020 Moderna Client reports receiving the 1st dose of the Covid vaccine, July 2020 Moderna kg
[2020-11-11 00:45] VITALS: BP 120/84; TEMP 98.3; O2SAT 98
== END 2020-11-11 00:31 | disposition home or self-care (01) ==
LOC: ER 20:44
DX: B34.9 Viral infection, unspecified (principal); Z20.822 Contact with and (suspected) exposure to COVID-19; Z91.048 Other nonmedicinal substance allergy status
CPT/HCPCS: 71046; 99283; U0003